=== PATIENT | male | born 1995 | race Two or more races ===

== ENCOUNTER → 2024-07-07 | Outpatient (CLI) | payer BC, SELFPAY ==
[2024-07-07 12:36] LABS: Absolute Neutrophil Count 4.1 X10^3/uL (2.0-7.7); Basophil# 0.08 X10^3/uL; Eosinophil# 0.13 X10^3/uL; Eosinophils% 1.6 % (0-5); Hematocrit 46.1 % (40-54); Hemoglobin 15.9 g/dL (13.0-16.5); Lymphocyte % 35.5 % (19-41); Mean Corp Hgb Conc 34.5 g/dL (32-36); Mean Corpuscular Hgb 30.8 pg (27.0-32.0); Mean Corpuscular Volume 89.3 fL (80-94); Mean Platelet Vol. 11.3 fl (6.2-12.0); Monocyte# 0.75 X10^3/uL; Monocyte% 9.5 % (0-10); NRBC Flagged by Analyzer 0 % (0-5); Neutrophil # 4.07 X10^3/uL (2.7-7.7); Neutrophil % 51.8 % (47-70); Platelet Count 190 K/mm3 (150-450); RBC Distribution Width CV 12.8 % (11.6-14.6); RBC Distribution Width SD 41.6 fl (35.1-43.9); Red Blood Count 5.16 M/mm3 (4.6-6.2); White Blood Count 7.9 K/mm3 (4.4-11.0)
[2024-07-07 12:47] LABS: D-Dimer Quantitative (DVT/PE) 0.27 FEU/ug/m (0.27-0.49)
[2024-07-07 13:00] LABS: ALB/GLOB Ratio 1.5 RATIO (0.9-2.4); AST(SGOT) 248 U/L (<=37); Alanine Aminotransfer ALT/SGPT 660 U/L (<=46); Albumin, Serum 4.7 g/dL (3.5-5.0); Alkaline Phosphatase 64 U/L (40-129); Anion Gap 13 (5-15); BUN 6 mg/dL (4-19); Calcium,Total 9.2 mg/dL (7.6-11.0); Carbon Dioxide 22.1 mmol/L (21.0-32.0); Chloride 103 mmol/L (98-108); Creatinine, Serum 0.83 mg/dL (0.70-1.20); EST Glomerular Filtration Rate 123 (>60); Globulin 3.2 g/dL (2.2-4.2); Glucose 91 mg/dL (70-99); Magnesium 2.2 mg/dL (1.5-2.2); Potassium 3.9 mmol/L (3.3-5.1); Protein, Total 7.9 g/dL (5.9-8.4); Sodium Level 138 mmol/L (133-145); Total Bilirubin 0.55 mg/dL (0.00-1.30); Troponin T High Sensitivity < 6 ng/L (<=22)
[2024-07-07 17:28] LABS: Ferritin 1165 ng/mL (37-417)
== END | disposition home or self-care (01) ==
LOC: LABSPEC 12:16
PROVIDERS: PCP Internal Medicine; Referring Provider Internal Medicine; Visit Provider Internal Medicine
DX: R00.2 Palpitations (principal)
CPT/HCPCS: 80053; 82728; 83735; 84439; 84443; 84484; 85025; 85379

== ENCOUNTER → 2024-07-21 | Outpatient (CLI) | payer BC, SELFPAY ==
--- NOTE | 2024-07-21 08:03 | US_ITS ---
PROCEDURE: ABD LIMITED W/ ELASTOGRAPHY, 07/21/2024 REASON FOR EXAM: OTHER SPECIFIED ABNORMAL FINDINGS OF BLOOD CHEMISTRY COMPARISON: None TECHNIQUE: Grayscale and color Doppler imaging of the right upper quadrant was performed. Elastography was performed for non-invasive assessment of liver tissue stiffness utilizing a [employer]ong S-shear wave imaging unit. FINDINGS: Liver: Markedly echogenic. 17.4 cm in length. Gallbladder: No visualized stones, sludge, wall thickening or pericholecystic fluid. Reportedly, sonographic Mansfield's was negative. Biliary tree: Unremarkable. CBD measures 4 mm. Pancreas: Largely obscured by shadowing bowel gas. Right kidney: Unremarkable. 11.2 cm in length. Other: No visualized free fluid. Hepatic elastography: Number of measurements: 15 measurements across 3 regions, 5 measurements per region. US probe: CA1-7A. EQI median: 11.7 kPa EQI median velocity: 1.97 m/s IQR/Med: 19.2-23.8% (kPa) and 10.3-11.9% (m/s). If the IQR/Med is IQR/median >30% (for kPa) or >15% in m/s, the variance in the measurements is a large and the accuracy of the measurement may be in question. US/ABD Limited w/ Elastography IMPRESSION: 1. Appearance of the hepatic parenchyma most frequently associated with chronic liver disease such as steatosis although fibrosis may have a similar appearance. Correlate with clinical and laboratory evaluati on. 2. Liver stiffness is 11.7 kPa. Per the below 2020 SRU criteria, this is sugges tive of compensated advanced chronic liver disease but requires further testing for confirmation. 3. Additional description as above. Assessment is per the Update to the SRU Liver Elastography Consensus Statement (2020) Note that the above assessment of liver fibrosis is vendor-neutral and intended for use in fibrosis related to viral etiologies and non-alcoholic fatty-liver disease (NAFLD); in causes other than viral hepat itis and NAFLD, the cutoff values are currently not well established. In some patients with NAFLD, the cutoff values for cACLD may be lower (7-9 kPa). Note also that in the setting of elevated LFTs, nonfasting or vascular congestion, the stage of lifer fibrosis may be overestimated. Previous U reference values: <1.37 m/s (5.7kPa): No to mild fibrosis 1.37 m/s - 2.2 m/s: Moderate to severe fibrosis >2.2 m/s (15kPa): Significant fibrosis / cirrhosis Reading Location: [id number]
== END | disposition home or self-care (01) ==
PROVIDERS: PCP Internal Medicine; Referring Provider Internal Medicine; Visit Provider Internal Medicine
DX: R79.89 Other specified abnormal findings of blood chemistry (principal)
CPT/HCPCS: 76705; 76981

== ENCOUNTER 2024-09-11 09:00 | Outpatient (RCR) | payer BC, SELFPAY ==
--- NOTE | 2024-08-04 16:06 | HP.PTEVAL_ITS ---
Patient's Visit Information Visit Information Visit Information: KEVIN RON is a 28 year old M referred to Physical Therapy by Dr. Ermelinda He MD with a diagnosis of L SCAPULAR/COSTOCHONDRITIS. Date of Evaluation: 08/04/24 Physical Therapist: Jeanna Burgos PT, Cert MDT Visit Plan Frequency: 2-3x /Week Duration: 4-6 Weeks Plan: 1. PEC STRETCHING 2. L ROTATOR CUFF AND SCAPULAR STABILIZER STRENGTHENING 3. POSTURAL STRENGTHENING 4. 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 HEP 6. 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 JOB INVOLVES HEAVY BENDING, LIFTING AND TWISITNG UP TO 30 TO 40 LBS REPETIVELEY. OTHER: GOES BY [facility] ([facility]-) Disability: NO Present symptoms: L CHEST AND SHLD BLADE AREA PAIN. L SHLD PAIN TOO. INTERMITTENT L UE NUMBNESS AND TINGLING. R UE HAS STARTED TO GET NUMB AND TINGLY TOO AND IT IS RIGHT NOW. ALSO STARTING TO GET PAIN IN R SHLD BLADE BUT NOT CHEST. DENIES TEO LE PAIN, NUMBESS AND TINGLING. SHORTNESS OF BREATHE Present since: MAR 2024 Getting Better, Getting Worse or Staying the Same: GETTING WORSE Pain Scale: Worst - 8/10 Least - 3/10 Currently: 5/10 Commenced as a result of: LIFTING AT WORK (STARTED LABOR JOB IN JAN 2024) Symptoms at onset: L CHEST PAIN Worse: TOUCHING IT, LIFTING ANYTHING HEAVY WITH L UE, ANY PHYSICAL ACTIVITY, USING L UE - 10 LBS IS VERY DIFFICULT WITH L UE (CAN LIFT 15 TO 20 LBS PRETTY EASILY WITH R UE), SDLY - ESPECIALLY L SDLY. Better: VOLTERAN GEL, STRETCHING, RESTING, AVOIDING LIFTING, LYING DOWN ON BACK, STILL WITH GOOD POSTURE. STANDING DESK. SITTING WITH SUPPORT IN LOW BACK. Disturbed sleep: YES Previous history/Previous treatment: UNREMARKABLE This episode: OTC PAIN KILLERS THEN June ALMOST FAINTED AT WORK AND DR. HE PRESCRIBED ANXIETY MEDS WITH BENEFIT. MASSAGE X1 WITH TEMPORARY BENEFIT. Dizziness: NO Tinnitus: NO Nausea: NO Shortness of Breath: INTERMITTENT Difficulty Swallowing: NO Gait: LEAN TO THE LEFT WHEN WALKING - FRIEND NOTICED ON VACATION LAST WEEK. Accidents: NO Unexplained weight loss: NO Imaging: RIB AND CHEST X-RAYS- NORMAL PMH/Recent major surgery: FEB 2023 EPISODE OF ANXIETY. Objective Objective: Sitting Posture/Standing Posture: MILD FH. REDUCED CERVICAL LORDOSIS. NO TORTICOLLIS. Active Correction of posture: WORSE - SITTING ERECT PROVOKES L SCAPULAR PAIN. INITIALLY NO PAIN IN SLOUCHING THEN WITH PROLONGED SLOUCH L CHEST PAIN IS PROVOKED. Other Observations: BRUISING TO THE LEFT OF STERNUM. PATIENT RELATES THIS TO PUSHING ON IT HIMSELF WHEN IT HURTS TO TRY TO GET RELIEF. INDEP GAIT AND TRANSFERS. Sensory deficit: TEO UE LIGHT TOUGH SENSATION GROSSLY INTACT AND SYMMETRICAL ROM deficit: TEO UE AROM FULL. PEC TIGHTNESS Motor deficit: R UE 5/5. L UE 5/5 EXCEPT SHLD 4/5 AND PATIENT C/O L SHLD/SHLD BLADE AND CHEST PAIN WITH TESTING. Cervical Mvmt Loss: Flex: NIL - P POST NECK PAIN - NW Pro: NIL Ext: MIN - P L CHEST PAIN - NW Ret: MOD RSB: MOD - P L NECK PAIN - NW LSB: MOD R Rot: NIL L Rot: MIN THORACIC MVMT LOSS: R ROTATION: MIN L ROTATION: MOD - P L FLANK PAIN - W FOR A FEW MINUTES LUMBAR MVMT LOSS: FLEX - MOD EXT - MIIN TEO SG - MIN LUMBAR ROM TESTING HAS NE ON SX'S. Postural strength: FAIR. Palpation: TENDERNESS T12 L1 REGION. PATIENT REPORTS THIS IS UNRELATED AND STARTED WITH THE NEW LABOR JOB. DENIES OTHER THORACIC, CERVICAL TEO SHLD TENDERNESS. L CHEST TENDERNESS IN BRUISED AREA. Balance/Special Test Scores Quick DASH Score: 47.7250 Rehabilitation Potential Physical Therapy Diagnosis: L UE WEAKNESS AND CHEST TENDERNESS. L THORACIC ROTATION PAIN AND MVMT LOSS. POSTURAL TIGHTNESS. Rehabilitation Potential: Good Anticipated Interventions Patient/Client Instruction: Educate patient on: Condition, Plan of Care and Risk Factors For the Purpose of:: To improve self management Therapeutic Exercise to Include: Strength training, Body mechanics, Postural training, Flexibilty training, Relaxation training and Scapular Strength/Stabilization For the Purpose of:: To decrease pain, To improve muscle performance and motor function, To increase tolerance to activity/condition/position, To improve ability of physical actions for home/community/work/leisure, To decrease soft tissue restriction, To increase flexibility/ROM and To improve self management Manual Therapy Techniques to Include: Soft tissue mobilization For the Purpose of:: To improve nutrient delivery to tissue and To decrease soft tissue restriction Cryotherapy (ice pack, ice massage): Yes Thermo therapy (hot pack): Yes For the Purpose of:: To decrease pain, To decrease swelling/inflammation and To improve nutrient delivery to tissue Text: Thank you for the opportunity to evaluate your patient. For Medicare and Medicare HMO plans, please review the plan of care and approve it. It will need to be FAXED BACK to us at [phone] for Medicare purposes. For Medicare only, by signing this I certify the plan of care. Please let me know if there are questions or concerns regarding this plan of care. Physician Signature: Date:
--- NOTE | 2024-08-27 15:45 | HP.PTREVAL ---
Re-Evaluation Intro: Dr. Ermelinda He MD, It has been my pleasure to treat KEVIN RON over the last 8 visits for L SCAPULAR/COSTOCHONDRITIS. Please see the progress note below for an update on the physical therapy plan of care! Subjective Subjective: PATIENT REPORTS 40% IMPROVEMENT IN HIS L SHLD PAIN AND ZERO % IMPROVEMENT IN HIS CHEST PAIN. Objective Objective/Function: PATIENT WAS SEEN TODAY FOR RE-ASSESSMENT OF PROGRESS TOWARD THE SET PT GOALS AND THE NEED FOR FURTHER PHYSICAL THERAPY VS READINESS FOR DISCHARGE. PAINFREE CERVICAL AND THORACIC ROM HAVE IMPROVED SIGNIFICANTLY ALONG WITH L UE STRENGTH SINCE STARTING PT. PATIENT IS A GOOD CANDIDATE TO CONTINUE PT BASED ON IMPOVEMENT MADE CONTINUED LIMITATIONS. AT THIS POINT PHYSICIAN REASSESSMENT IS ALSO RECOMMENDED. PATIENT AGREEABLE. UPON EXAM TODAY: Motor deficit: R SHLD FLEX 50.6 LBS, L 39.6 LBS (78%) R SHLD EXT 49.3 LBS, L 28.9 LBS (59%) R SHLD ABD 29.9 LBS, L 29.5 LBS (99%) R SHLD ER 27.1 LBS, L 22.2 LBS (82%) R SHLD IR 29.2 LBS, L 28.7 LBS (98%) Cervical Mvmt Loss: Flex: NIL Pro: NIL Ext: NIL Ret: MIN RSB: NIL LSB: NIL R Rot: NIL L Rot: MIN PATIENT DENIES NECK AND TEO UE PAIN WITH CERVICAL ROM TESTING ALL PLANES. THORACIC MVMT LOSS: R ROTATION: NIL L ROTATION: MIN - P C/O MILD L SHLD BLADE PAIN - NW LUMBAR MVMT LOSS: FLEX - MOD EXT - MIN TEO SG - NIL LUMBAR ROM TESTING HAS NE ON SX'S. Postural strength: FAIR. Palpation: TENDERNESS [id number] REGION TODAY. DENIES OTHER THORACIC, CERVICAL, LUMBAR AND TEO SHLD TENDERNESS. L CHEST TENDERNESS IN BRUISED AREA REMAINS AND PATIENT REPORTS HE STILL PUSHES ON THIS AREA. Plan Plan Plan: HOLD PT PENDING PHYSICIAN RE-ASSESSMENT. Balance/Gait/Functional tests Balance/Special Test Scores Quick DASH Score: 40.9075 Anticipated Interventions Anticipated Interventions Patient/Client Instruction: Educate patient on: Condition, Plan of Care and Risk Factors For the Purpose of:: To improve self management Therapeutic Exercise to Include: Strength training, Body mechanics, Postural training, Flexibilty training, Relaxation training and Scapular Strength/Stabilization For the Purpose of:: To decrease pain, To improve muscle performance and motor function, To increase tolerance to activity/condition/position, To improve ability of physical actions for home/community/work/leisure, To decrease soft tissue restriction, To increase flexibility/ROM and To improve self management Manual Therapy Techniques to Include: Soft tissue mobilization For the Purpose of:: To improve nutrient delivery to tissue and To decrease soft tissue restriction Cryotherapy (ice pack, ice massage): Yes Thermo therapy (hot pack): Yes For the Purpose of:: To decrease pain, To decrease swelling/inflammation and To improve nutrient delivery to tissue Re-Evaluation Ending Re-evaluation ending: Please do not hesitate to contact me at [phone] by phone or if you have questions or concerns regarding this new plan of care! Sincerely, Jeanna Burgos, PT, Cert MDT
--- NOTE | 2024-09-11 12:10 | HP.PTDCSUM_ITS ---
Discharge Summary D/C summary: It has been my pleasure to treat KEVIN RON referred by Dr. Ermelinda He MD, with the diagnosis of L SCAPULAR/COSTOCHONDRITIS for a total of 11 visit(s). Discharge Date: 09/11/24 Please see the following information for a summary of their discharge status. 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 STATES HE DID GOOD AFTER LAST VISIT BUT BEING SICK THE LAST COUPLE DAYS WITH POSSIBLE FOOD POISONING HAS IRRITATED HIS SYMPTOMS. WENT BACK TO [facility] SATURDAY AND RECEIVED ABOUT THE SAME TREATMENT LAST TIME BUT FELT LESS AGGRESSIVE TO PATIENT. PATIENT REPORTS FEELING THE CHIROPACTIC VISIT WAS BENEFICIAL AND NO WORSE AFTER. PATIENT REPORTS THE PAIN HAS GRADUALLY MOVED TO HIS L RIB CAGE AREA AND HE IS POINTING UNDER HIS ARM TO HIS LATERAL RIB CAGE AREA. HE ALSO FEELS A LUMP NOW IN HIS L CHEST MUSCLE AND STATES HIS L SHOULDER IS CRACKING AND HIS L SHOULDER GETS PAINFUL IF HE CRACKS HIS SHLD A LOT. DID NOT HAVE ENERGY TO DO HOME EX'S SAT AND SATURDAY AND CALLED OFF WORK SOME TOO. PATIENT STATES HE PLANS TO CONTINUE TO SEE THE CHIROPACTOR ONCE A WK ON TUESDAYS AND FOLLOW UP WITH DR. HE IN SEPTEMBER. Pain Shoulder blade: Pain Intensity (Out of 10): 5 Chest: Pain Intensity (Out of 10): 0 L LATERAL RIB CAGE: Pain Intensity (Out of 10): 7 Overall Improvement % Improvement: 80 Objective Objective/Function: PATIENT WAS SEEN TODAY FOR RE-ASSESSMENT OF PROGRESS TOWARD THE SET PT GOALS AND THE NEED FOR FURTHER PHYSICAL THERAPY VS READINESS FOR DISCHARGE. PAINFREE CERVICAL AND THORACIC ROM HAVE IMPROVED SIGNIFICANTLY ALONG WITH L UE STRENGTH SINCE STARTING PT. PATIENT IS INDEP WITH A HEP AND HOME INSTRUCTIONS AND NOW SEEING A CHIROPRACTOR. HE IS APPROPRIATE FOR AND AGREEABLE TO DISCHARGE TO [facility] EX FROM PT. UPON EXAM TODAY: Motor deficit: R SHLD FLEX 50.6 LBS, L 47.7 LBS (94.3%) R SHLD EXT 49.3 LBS, L 48.0 LBS (97.4%) R SHLD ABD 43.2 LBS, L 40.8 LBS (94.4%) R SHLD ER 27.1 LBS, L 29.0 LBS (107%) R SHLD IR 29.2 LBS, L 28.7 LBS (98.3%) Cervical Mvmt Loss: Flex: NIL Pro: NIL Ext: NIL Ret: MIN RSB: NIL LSB: NIL R Rot: NIL L Rot: NIL PATIENT DENIES NECK AND TEO UE PAIN WITH CERVICAL ROM TESTING ALL PLANES. THORACIC MVMT LOSS: R ROTATION: NIL L ROTATION: NIL - C/O MILD LEFT NECK STRAIN - NW LUMBAR MVMT LOSS: FLEX - MOD EXT - MIN TEO SG - NIL LUMBAR ROM TESTING HAS NE ON SX'S. Postural strength: FAIR. Palpation: L CHEST BRUISED AREA REMAINS AND PATIENT REPORTS HE STILL PUSHES ON THIS AREA SOME BUT IT IS ACTUALLY NOT TENDER TODAY. PATIENT HAS PALPABLE MUSCLE SPASM L PEC REGION TODAY UPON ARRIVAL AND L RIB CAGE REGION TENDERNESS. Plan Plan: D/C TO INDEP HOME EX, F/U WITH CHIROPRACTOR AND DR. HE. D/C Information d/c sentence: If there are questions or concerns regarding this patient's physical therapy, please feel free to call me at [phone]. Thank you for the referral of this patient. Sincerely, Jeanna Burgos, PT, Cert MDT Balance/Gait/Functional tests Balance/Special Test Scores Quick DASH Score: 18.1800 Improvement % Improvement: 80
== END 2024-09-11 19:00 | disposition home or self-care (01) ==
LOC: PT 09:00
PROVIDERS: PCP Internal Medicine; Referring Provider Internal Medicine; Visit Provider Internal Medicine
DX: M25.512 Pain in left shoulder (principal); M94.0 Chondrocostal junction syndrome [Tietze]
CPT/HCPCS: 97035; 97110; 97162; 97530

== ENCOUNTER → 2024-10-28 | Outpatient (CLI) | payer BC, SELFPAY ==
--- OUTSIDE RECORDS SUMMARY | 2024-10-28 12:33 | XMS RPT_ITS | CCD ---
Author Organization [facility] CliniSymd Care Team Providers Care Cruller Maker Machine Name Role Phone Raymond AUGUSTE, Dr. Nolan Attending Provider [phone] Ying AUGUSTE, Dr. Wadsworth Primary Care Provider Ying AUGUSTE, Dr. Wadsworth Attending Provider Ying AUGUSTE, Dr. Wadsworth Referring Provider José Miguel AUGUSTE, Dr. Brand Attending Provider Lacey AUGUSTE, Dr. Nava Attending Provider José Miguel AUGUSTE, Dr. Brand Referring Provider Lacey AUGUSTE, Dr. Nava Referring Provider Bonezzi, Ermelinda Primary Care Unavailable Bonezzi, Ermelinda Attending Unavailable Bonezzi, Ermelinda Referring Unavailable Isckarus, Mansxi Referring Unavailable Bonezzi, Ermelinda Primary Care Unavailable Isckarus, Brandy Attending Unavailable José Miguel, Sunday Referring Unavailable Bonezzi, Ermelinda Primary Care Unavailable Isckarus, Brandy Attending Unavailable Ovidio Andrade Attending Unavailable Bonezzi, Ermelinda Referring Unavailable Bonezzi, Ermelinda Primary Care Unavailable Bonezzi, Ermelinda Attending Unavailable Bonezzi, Ermelinda Referring Unavailable Bonezzi, Ermelinda Primary Care Unavailable Bonezzi, Ermelinda Attending Unavailable Bonezzi, Ermelinda Primary Care Unavailable Isckarus, Brandy Attending Unavailable Bonezzi, Ermelinda Referring Unavailable José Miguel, Sunday Attending Unavailable Bonezzi, Ermelinda Primary Care Unavailable Bonezzi, Ermelinda Referring Unavailable Bonezzi, Ermelinda Referring Unavailable Bonezzi, Ermelinda Primary Care Unavailable Bonezzi, Ermelinda Attending Unavailable José Miguel, Sunday Attending Unavailable José Miguel, Sunday Referring Unavailable Bonezzi, Ermelinda Primary Care Unavailable Medications Current Medications Medication Drug Class(es) Dates Sig (Normalized) Sig (Original) busPIRone hydrochloride 10 mg oral tablet (7 sources) Start: 09-02-2024 take 1 tablet by mouth twice daily Buspirone 10 mg tablet Active 10 mg PO TWICE A DAY September 02, 2024 12:00am Start: 08-13-2024 End: 09-02-2024 take 1 tablet by mouth twice daily Buspirone 7.5 mg tablet Discontinued 7.5 mg PO TWICE A DAY August 13, 2024 12:00am September 02, 2024 10:14am Completed/Discontinued Medications Medication Drug Class(es) Dates Sig (Normalized) Sig (Original) finasteride 1 mg oral tablet (4 sources) 5-alpha Reductase Inhibitor Start: 08-13-2024 End: 08-18-2024 take 1 tablet by mouth once daily Finasteride 1 mg tablet Discontinued 1 mg PO daily August 13, 2024 12:00am August 18, 2024 2:17pm minoxidil 10 mg oral tablet (4 sources) Arteriolar Vasodilator Start: 08-13-2024 End: 08-18-2024 take 1 tablet by mouth once daily Minoxidil 10 mg tablet Discontinued 10 mg PO daily August 13, 2024 12:00am August 18, 2024 2:17pm Problems Active Problems Problem Classification Problem Date Documented Date Episodic/Chronic Nonspecific chest pain (1 source) Chest pain, unspecified; Translations: [Chest pain, unspecified] Onset: 10-20-2024 Episodic Other liver diseases (7 sources) Hepatic fibrosis; Translations: [Hepatic fibrosis] 08-18-2024 Chronic Other nutritional; endocrine; and metabolic disorders (3 sources) Iron overload; 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] 08-18-2024 Chronic Other nutritional; endocrine; and metabolic disorders (1 source) Other disorders of iron metabolism; 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] Onset: 10-16-2024 Chronic Other screening for suspected conditions (not mental disorders or infectious disease) (8 sources) Protein level - finding; Translations: [Other specified abnormal findings of blood chemistry] Onset: 07-27-2024 09-02-2024 Episodic Comment on above: With negative hemoch romatosis gene testing Unclassified (3 sources) E83.19 - Other disorders of iron metabolism,K74.00 - Hepatic fibrosis, unspecified Unclassified (1 source) Iron overload Unclassified (1 source) Hepatic fibrosis, unspecified; Translations: [Hepatic fibrosis, unspecified] Onset: 10-16-2024 Past or Other Problems Problem Classification Problem Date Documented Da te Episodic/Chronic Cardiac dysrhythmias (1 source) Palpitations; Translations: [Palpitations] Onset: 07-09-2024 Episodic Results Test Name Value Interpretation Reference Range Facility Oncology Visit Reporton Oncology Visit Report [facility] [address] [address] OFFICE VISIT Date of Service: 09/22/24 1431 MR#: [id number] Acct: [id number] Name: KEVIN RON Rep #: [id number] : 1995 From: Brandy Rahman MD Age/Sex: 28/M Location: [facility] Status: Signed HPI Subjective Date of Service 09/22/24 Chief Complaint Elevated ferritin History of Present Illness 28-year-old male was evaluated for elevated liver enzymes and was found to have elevated ferritin over 1000 prompting hemochromatosis gene analysis which came back negative. No family history of hemochromatosis or unexplained liver disease. Patient's father was diagnosed with fatty liver. The referring MD also requested the patient, if indicated, be checked for hemoglobinopathy and/or porphyria. The patient has no history of blistering photosensitive rash nor unexplained bouts of acute abdominal pain. His CBC is normal. [facility] Medical History Anxiety NAFLD (nonalcoholic fatty liver disease) Costochondritis, acute Palpitations Chest pain Elevated liver enzymes Elevated ferritin Family History Other No pertinent family history Social History Smoking Status: Former smoker Tobacco: How many years used: 8 alcohol intake: current alcohol intake frequency: a few times a month Alcohol type: beer ROS ROS Narrative C September 02, 2024 Intake Vital Signs 09/02/24 10:23 09/22/24 14:32 09/22/24 14:35 Height 6 ft 6 ft 6 ft Weight: 97.069 kg BMI 29.0 BP 130/85 H Blood Pressure Location Lt brachial Position Sitting Respiration 16 Pulse 99 Pulse Source Monitor Temp 98.4 F Temperature Source Temporal Artery Pulse Oximetry (%) 97 Oxygen Delivery Method room air Intake Is patient in pain?: No Allergies No Known Allergies Allergy (Verified 09/22/24 14:35) Medications ???Medication ???Instructions ???Recorded ???Confirmed ???Type buspirone 10 mg tablet 10 mg PO BID 09/02/24 09/22/24 His tory Have you fallen in the past year?: No Central Venous Access Central Venous Access: No Laboratory Tests 07/07/24 09/16/24 10:45 09:18 Fasting Iron Saturation 41.0 Ferritin 1165 H 946 H Exam Physical Exam Narrative Seizure 04/04/2024 Const alert, oriented x3 and no apparent distress Coding Level of Care Code Off vis,est,level 3 Exam Problem Focused Diagnoses Elevated ferritin R79.89 Assessment and Plan Assessment and Plan (1) Elevated ferritin: Status: Acute Comment: With negative hemochromatosis gene testing Plan 28-year-old male who was evaluated for elevated liver enzymes, was found to have an elevated serum ferritin prompting hemochromatosis gene analysis which came back negative. Repeat fasting iron st udies showed ferritin to be persistently elevated but to a lesser extent and normal iron saturation. This makes hereditary hemochromatosis very unlikely unless iron overload is confirmed within the hepatocytes on a liver biopsy. The referring MD questioned: 1. Possibility of a hemoglobinopathy: The patient has a normal CBC and therefore no further workup is indicated for a hemoglobinopathy. 2. Possibility of porphyria: In absence of history of photosensitive blistering rash or unexplained bouts of acute abdominal pain to suggest acute intermittent porphyria (also known acute hepatic porphyria) I do not think further testing is warranted. If this is still suspected by the referring doctor's screening with random urine porphyrins can be ordered to his discretion. Plan: No further workup from hematology unless the patient is approved to have excessive iron deposition in the hepatocytes on a liver biopsy. Will defer to hepatology and primary care for further workup. Impression and plan as above outlined discussed. Brandy Rahman MD Casing Soaker, [facility] Divisions of Medical Oncology Hematology Department of Internal Medicine [place] [id number] This note was generated using a voice recognition system software. Although it was reviewed by the author prior to finalization, it may still contain incorrect words, spelling, and punctuation that were not noted when reviewing prior to saving. If a clinically significant typo or inaccurately typed phrase is noted, please notify the author. Clinical Quality Measures Falls Risk Screening/Assistive Devices Have you fallen in the past year?: No 09/22/24 1513 Date Brandy Rahman MD Cosigner Signature: Date (more content not included)... Normal [facility] Iron measurement (mass/mass) Ordered By: Brandy Rahman on 09-16-2024 Iron (Unsp spec) [Mass/Mass] 150 ug/dL 65-175 [facility] Iron+Iron Binding Capacityon 09-16-2024 Iron [Mass/Vol] 150 ug/dL Normal 65-175 [facility] Comment on above: Performed By: #### L 503.6030, L503.6550 #### [facility] [address]. [place] [id number] IRON SATURATION 41.0 Normal 9-55 [facility] Comment on above: Performed By: #### L 503.6030, L503.6550 #### [facility] [address] [facility] [address] TIBC 365 ug/dL Normal 250-450 [facility] Comment on above: Performed By: #### L 503.6030, L503.6550 #### [facility] [address] [facility] [place], [address] UIBC 215 ug/dL Low 228-428 [facility] Comment on above: Performed By: #### L 503.6030, L503.6550 #### [facility] [address] [place], [place], [address] No Panel InformationOrdered By: Brandy Rodriguezriaz on 09-16-2024 Unsaturated Iron Binding Capacity 215 ug/dL Low 228-428 [facility] Serum or plasma ferritin nevaeh surement (mass/volume)Ordered By: Brandy Rahman on 09-16-2024 Ferritin [Mass/Vol] 946 ng/mL High 37-417 [facility] Comment on above: Performed By: #### L 503.6030, L503.6550 #### [facility] [address] [place], [place], [id number] Serum or plasma iron saturat ion measurement (mass fraction)Ordered By: Brandy Rahman on 09-16-2024 Iron saturation [Mass fraction] 41.0 % 9-55 [facility] PT D/C Summary (1)on 025 PT D/C Summary (1) [facility] Physical Therapy [place] [id number] [facility] [place] [address] / REHABILITATION SERVICES DISCHARGE SUMMARY MR#: [id number] Acct: [id number] Name: KEVIN RON Rep #: [id number] : 1995 28 From: Jeanna Burgos PT, Cert. MDT Referring Dr.: Dr. Ermelinda Farias MD Status: REG R Insurance: [employer] S[employer] PAY INSURANCE Discharge Summary D/C summary: It has been my pleasure to treat KEVIN RON referred by Dr. Ermelinda Farias MD, with the diagnosis of L SCAPULAR/COSTOCHONDRIT IS for a total of 11 visit(s). Discharge Date: 09/11/24 Please see the following information for a summary of their discharge status. 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 STATES HE DID GOOD AFTER LAST VISIT BUT BEING SICK THE LAST COUPLE DAYS WITH POSSIBLE FOOD POISONING HAS IRRITATED HIS SYMPTOMS. WENT BACK TO [facility] SATURDAY AND RECEIVED ABOUT THE SAME TREATMENT LAST TIME BUT FELT LESS AGGRESSIVE TO PATIENT. PATIENT REPORTS FEELING THE CHIROPACTIC VISIT WAS BENEFICIAL AND NO WORSE AFTER. PATIENT REPORTS THE PAIN HAS GRADUALLY MOVED TO HIS L RIB CAGE AREA AND HE IS POINTING UNDER HIS ARM TO HIS LATERAL RIB CAGE AREA. HE ALSO FEELS A LUMP NOW IN HIS L CHEST MUSCLE AND STATES HIS L SHOULDER IS CRACKING AND HIS L SHOULDER GETS PAINFUL IF HE CRACKS HIS SHLD A LOT. DID NOT HAVE ENERGY TO DO HOME EX'S SAT AND SATURDAY AND CALLED OFF WORK SOME TOO. PATIENT STATES HE PLANS TO CONTINUE TO SEE THE CHIROPACTOR ONCE A WK ON TUESDAYS AND FOLLOW UP WITH DR. FARIAS IN SEPTEMBER. Pain Shoulder blade: Pain Intensity (Out of 10): 5 Chest: Pain Intensity (Out of 10): 0 L LATERAL RIB CAGE: Pain Intensity (Out of 10): 7 Overall Improvement % Improvement: 80 Objective Objective/Function: PATIENT WAS SEEN TODAY FOR RE-ASSESSMENT OF PROGRESS TOWARD THE SET PT GOALS AND THE NEED FOR FURTHER PHYSICAL THERAPY VS READINESS FOR DISCHARGE. PAINFREE CERVICAL AND THORACIC ROM HAVE IMPROVED SIGNIFICANTLY ALONG WITH L UE STRENGTH SINCE STARTING PT. PATIENT IS INDEP WITH A HEP AND HOME INSTRUCTIONS AND NOW SEEING A CHIROPRACTOR. HE IS APPROPRIATE FOR AND AGREEABLE TO DISCHARGE TO [facility] EX FROM PT. UPON EXAM TODAY: Motor deficit: R SHLD FLEX 50.6 LBS, L 47.7 LBS (94.3%) R SHLD EXT 49.3 LBS, L 48.0 LBS (97.4%) R SHLD ABD 43.2 LBS, L 40.8 LBS (94.4%) R SHLD ER 27.1 LBS, L 29.0 LBS (107%) R SHLD IR 29.2 LBS, L 28.7 LBS (98.3%) Cervical Mvmt Loss: Flex: NIL Pro: NIL Ext: NIL Ret: MIN RSB: NIL LSB: NIL R Rot: NIL L Rot: NIL PATIENT DENIES NECK AND TEO UE PAIN WITH CERVICAL ROM TESTING ALL PLANES. THORACIC MVMT LOSS: R ROTATION: NIL L ROTATION: NIL - C/O MILD LEFT NECK STRAIN - NW LUMBAR MVMT LOSS: FLEX - MOD EXT - MIN TEO SG - NIL LUMBAR ROM TESTING HAS NE ON SX'S. Postural strength: FAIR. Palpation: L CHEST BRUISED AREA REMAINS AND PATIENT REPORTS HE STILL PUSHES ON THIS AREA SOME BUT IT IS ACTUALLY NOT TENDER TODAY. PATIENT HAS PALPABLE MUSCLE SPASM L PEC REGION TODAY UPON ARRIVAL AND L RIB CAGE REGION TENDERNESS. Plan Plan: D/C TO INDEP HOME EX, F/U WITH CHIROPRACTOR AND DR. FARIAS. D/C Information d/c sentence: If there are questions or concerns regarding this patient's physical therapy, please feel free to call me at [phone]. Thank you for the referral of this patient. Sincerely, Jeanna Burgos, PT, Cert MDT Balance/Gait/Functiona l tests Balance/Special Test Scores Quick DASH Score: 18.1800 Improvement % Improvement: 80 09/11/24 1211 CC: Dr. Ermelinda Farias MD RENATA Signed Normal [facility] Oncology Visit Reporton 08-23 Oncology Visit Report [facility] [address] [address] OFFICE VISIT Date of Service: 09/02/24 1013 MR#: [id number] Acct: [id number] Name: KEVIN RON Rep #: [id number] : 1995 From: Brandy Rahman MD Age/Sex: 28/M Location: [facility] Status: Signed HPI Subjective Date of Service 09/02/24 Chief Complaint Elevated ferritin History of Present Illness 28-year-old male was evaluated for elevated liver enzymes and was found to have elevated ferritin over 1000 prompting hemochromatosis gene analysis which came back negative. No family history of hemochromatosis or unexplained liver disease. Patient's father was diagnosed with fatty liver. The referring MD also requested the patient, if indicated, be checked for hemoglobinopathy and/or porphyria. The patient has no history of blistering photosensitive rash nor unexplained bouts of acute abdominal pain. His CBC is normal. [facility] Medical History (Updated 09/02/24 @ 10:[address] Brandy Rahman MD) Anxiety NAFLD (nonalcoholic fatty liver disease) Costochondritis, acute Palpitations Chest pain Elevated liver enzymes Elevated ferritin Family History (Updated 09/02/24 @ 10:17 by Tricia Jaramillo) Other No pertinent family history Social History (Updated 09/02/24 @ 10:16 by Tricia Jaramillo) Smoking Status: Former smoker Tobacco: How many years used: 8 alcohol intake: current alcohol intake frequency: a few times a month Alcohol type: beer ROS Constitutional Constitutional: Reports systems reviewed and no addt'l complaints, except as documented Eyes Eyes: Reports systems reviewed and no addt'l complaints, except as documented ENT HEENT: Reports systems reviewed and no addt'l complaints, except as documented Cardiovascular Cardiovascular: Reports systems reviewed and no addt'l complaints, except as documented Respiratory/Chest Respiratory/Chest: Reports systems reviewed and no addt'l complaints, except as documented Gastrointestinal Gastrointestinal: Reports systems reviewed and no addt'l complaints, except as documented Genitourinary Genitourinary: Reports systems reviewed and no addt'l complaints, except as documented Musculoskeletal Musculoskeletal: Reports systems reviewed and no addt'l complaints, except as documented and other Details: Patient was diagnosed with costochondritis and was taking NSAIDs Integumentary Integumentary: Reports systems reviewed and no addt'l complaints, except as documented; Denies photosensitivity or rash Neurologic Neurologic: Reports systems reviewed and no addt'l complaints, except as documented Psychiatric Psychiatric: Reports systems reviewed and no addt'l complaints, except as documented Endocrine Endocrinology: Reports systems reviewed and no addt'l complaints, except as documented Hematologic/Lymphatic Hematologic/Lymphatic: Reports systems reviewed and no addt'l complaints, except as documented; Denies anemia Allergic/Immunologic Allergic/Immunologic: Reports systems reviewed and no addt'l complaints, except as documented Intake Vital Signs 08/18/24 13:30 09/02/24 10:17 09/02/24 10:23 Height 6 ft 6 ft 3 in 6 ft Weight: 95.708 kg 96.672 kg BMI 28.6 26.6 BP 142/98 H 136/93 H Blood Pressure Location Rt brachial Lt brachial Position Sitting Sitting Respiration 18 Pulse 78 82 Pulse Source Monitor Temp 98.1 F Temperature Source Temporal Artery Pulse Oximetry (%) 98 97 Oxygen Delivery Method room air room air Intake Is patient in pain?: Yes (chest pain ) Pain scale (1-10): 5 Allergies No Known Allergies Allergy (Verified 09/02/24 10:13) Medications ???Medication ???Instructions ???Recorded ???Confirmed ???Type buspirone 10 mg tablet 10 mg PO BID 09/02/24 09/02/24 His tory Have you fallen in the past year?: No Central Venous Access Central Venous Access: No Laboratory Tests 07/07/24 10:45 Hgb 15.9 Hct 46.1 MCV 89.3 Ferritin 1165 H Exam Physical Exam Narrative Healthy appearing Const alert, oriented x3 and no apparent distress Skin no rashes or lesions noted Coding Level of Care Code Off vis,new,level 3 Exam Problem Focused Diagnoses Elevated ferritin R79.89 Assessment and Plan Assessment and Plan (1) Elevated ferritin: Status: Acute Comment: With negative hemochromatosis gene testing Plan 28-year-old male who was evaluated for elevated liver enzymes, was found to have a random nonfasting serum ferritin of over 1000 prompting hemochromatosis gene analysis which came back negative. This makes hereditary hemochromatosis very unlikely unless iron overload is confirmed within the hepatocytes on a liver biopsy. The referring MD questioned: 1. Possibility of a hemoglobinopathy: The patient h (more content not included)... Normal [facility] Re-Evaluation - PT (1)on Re-Evaluation - PT (1) [facility] [address] [place] [address]. [address] [place] [address] / REEVALUATION / MEDICARE RECERTIFICATION PHYSICAL THERAPY MR#: [id number] Acct: [id number] Name: KEVIN RON Rep #: [id number] : 1995 28 From: Jeanna Burgos PT, Cert. MDT Referring Dr.: Dr. Ermelinda Farias MD Status:REG R Insurance: [facility] SELF PAY INSURANCE Re-Evaluation Intro: Dr. Ermelinda Farias MD, It has been my pleasure to treat KEVIN RON over the last 8 visits for L SCAPULAR/COSTOCHONDRIT IS. Please see the progress note below for an update on the physical therapy plan of care! Subjective Subjective: PATIENT REPORTS 40% IMPROVEMENT IN HIS L SHLD PAIN AND ZERO % IMPROVEMENT IN HIS CHEST PAIN. Objective Objective/Function: PATIENT WAS SEEN TODAY FOR RE-ASSESSMENT OF PROGRESS TOWARD THE SET PT GOALS AND THE NEED FOR FURTHER PHYSICAL THERAPY VS READINESS FOR DISCHARGE. PAINFREE CERVICAL AND THORACIC ROM HAVE IMPROVED SIGNIFICANTLY ALONG WITH L UE STRENGTH SINCE STARTING PT. PATIENT IS A GOOD CANDIDATE TO CONTINUE PT BASED ON IMPOVEMENT MADE CONTINUED LIMITATIONS. AT THIS POINT PHYSICIAN REASSESSMENT IS ALSO RECOMMENDED. PATIENT AGREEABLE. UPON EXAM TODAY: Motor deficit: R SHLD FLEX 50.6 LBS, L 39.6 LBS (78%) R SHLD EXT 49.3 LBS, L 28.9 LBS (59%) R SHLD ABD 29.9 LBS, L 29.5 LBS (99%) R SHLD ER 27.1 LBS, L 22.2 LBS (82%) R SHLD IR 29.2 LBS, L 28.7 LBS (98%) Cervical Mvmt Loss: Flex: NIL Pro: NIL Ext: NIL Ret: MIN RSB: NIL LSB: NIL R Rot: NIL L Rot: MIN PATIENT DENIES NECK AND TEO UE PAIN WITH CERVICAL ROM TESTING ALL PLANES. THORACIC MVMT LOSS: R ROTATION: NIL L ROTATION: MIN - P C/O MILD L SHLD BLADE PAIN - NW LUMBAR MVMT LOSS: FLEX - MOD EXT - MIN TEO SG - NIL LUMBAR ROM TESTING HAS NE ON SX'S. Postural strength: FAIR. Palpation: TENDERNESS [id number] REGION TODAY. DENIES OTHER THORACIC, CERVICAL, LUMBAR AND TEO SHLD TENDERNESS. L CHEST TENDERNESS IN BRUISED AREA REMAINS AND PATIENT REPORTS HE STILL PUSHES ON THIS AREA. Plan Plan Plan: HOLD PT PENDING PHYSICIAN RE-ASSESSMENT. Balance/Gait/Functiona l tests Balance/Special Test Scores Quick DASH Score: 40.9075 Anticipated Interventions Anticipated Interventions Patient/Client Instruction: Educate patient on: Condition, Plan of Care and Risk Factors For the Purpose of:: To improve self management Therapeutic Exercise to Include: Strength training, Body mechanics, Postural training, Flexibilty training, Relaxation training and Scapular Strength/Stabilization For the Purpose of:: To decrease pain, To improve muscle performance and motor function, To increase tolerance to activity/condition/pos ition, To improve ability of physical actions for home/community/work/le isure, To decrease soft tissue restriction, To increase flexibility/ROM and To improve self management Manual Therapy Techniques to Include: Soft tissue mobilization For the Purpose of:: To improve nutrient delivery to tissue and To decrease soft tissue restriction Cryotherapy (ice pack, ice massage): Yes Thermo therapy (hot pack): Yes For the Purpose of:: To decrease pain, To decrease swelling/inflammation and To improve nutrient delivery to tissue Re-Evaluation Ending Re-evaluation ending: Please do not hesitate to contact me at [phone] by phone or if you have questions or concerns regarding this new plan of care! Sincerely, Jeanna Burgos, PT, Cert MDT 08/27/24 5734 CC: Dr. Ermelinda Farias MD RENATA Signed For Medicare only, by signing this I certify the plan of care. Physicians Signature Date Normal [facility] Gastroenterology Visit Repor ton 08-18-2024 Gastroenterology Visit Report [facility] Gastroenterology [address] [place] [address] OFFICE VISIT Date of Service: 08/18/24 MR#: [id number] Acct: [id number] Name: KEVIN RON Rep #: [id number] : 1995 Provider: Dr. Sunday bhakta MD Age/Sex: 28/M Location: [facility] [place] Status: Signed Intake Vital Signs 08/18/24 13:30 Height 6 ft Weight: 211 lb BMI 28.6 BP 142/98 H Blood Pressure Location Rt brachial Position Sitting Pulse 78 Pulse Oximetry (%) 98 Oxygen Delivery Method room air Intake Visit Reasons: LIVER DISEASE FATTY LIVER Allergies No Known Allergies Allergy (Verified 08/18/24 13:30) Medications ???Medication ???Instructions ???Recorded ???Confirmed ???Type buspirone 7.5 mg tablet 7.5 mg PO BID 08/13/24 08/18/24 Hi story [facility] Medical History Anxiety NAFLD (nonalcoholic fatty liver disease) Costochondritis, acute Palpitations Chest pain Elevated liver enzymes Elevated ferritin HPI HPI Details: KEVIN RON, is a 28 M who presents to the office today for initial consult. PCP referred for fatty liver. US abd/ elastography 4.29.- Liver measure 17.4cm, Stiffness 11.7 kPa 4.15.25- Fib-4 1.37 Patient seen as a new patient for elevated liver enzymes, high ferritin and transferrin saturation. Denies family history of chronic liver/GB/pancreatic disease. Denies history of autoimmune disease in first-degree family. No abdominal pain. Social history: Patient started drinking beer at the age of 16 with 1 to 2 days on weekends and later on heavily on weekends. Gradually progressed to maximum amount of 4 to 5 cans every other day. He quit alcohol April 2023. Smoking: Started smoking cigarettes 1 pack lasting for 1 week at the age of 15-16 and he quit in April 2023. Sometimes smokes weed. Denies other substance use. ROS Const Constitutional: Positive for weight change; No fatigue, fever(s) or weakness ENT ENT: No difficulty swallowing Resp Respiratory: No shortness of breath or wheezing Cardio Cardiology: No chest pain at rest or dyspnea on exertion Gastro GI: No abdominal pain, belching, bloating, change in bowel habits, change in stool character, coffee ground emesis, constipation, cramping, diarrhea, heartburn, difficulty swallowing, feeling full early, excessive flatus, incontinent of stools, Vomiting blood/hematemesis, Blood in stool, loose stools, Black,tarry stools, nausea/dyspepsia, pain with swallowing, vomiting or other Genitourinary Male: No difficulty urinating or burning urination Musc Musculoskeletal: Positive for joint pain, back pain and stiffness Skin Skin: No yellowing of the eye or itchy eyes Neuro Neurology: No abnormal movements, behavioral changes, weakness or lack of coordination Psych Psychiatric: No anxiety, No behavioral changes and No depression Endo Endocrine: Positive for weight change; No fatigue Aller/Imm Allergy/Immunologic: No itchy eyes or wheezing Lucien/Lymp Hematologic/Lymphatic: No easy bleeding or easy bruising Exam Const General: cooperative, no acute distress and well developed Nutritional Appearance: overweight Orientation: alert, awake and oriented x3 Other: Body weight 211 pounds, BMI 28.6 kg/m???. He said he lost about 20 pounds in last 6 months intentionally. [facility] Head: normocephalic and atraumatic Nose: external nose normal Face and sinus: normal facial exam Mouth: moist mucous membranes Eyes Pupils: PERRL EOM: EOM intact bilaterally Neck Neck: normal visual inspection, no meningeal signs and trachea midline Carotids: no bruits Chest Chest palpation inspection: normal inspection of the chest Resp Effort Inspection: normal respiratory effort and symmetric chest movement Auscultation: Bilateral: Clear to Auscultation Cardio Palpation: normal PMI Rate: regular rate Rhythm: regular rhythm Heart Sounds: S1 normal and S2 normal GI Auscultation: normal bowel sounds Percussion: normal to percussion Palpation: soft, no hepatosplenomegaly and no guarding Other: Liver not enlarged. Spleen not palpable General: bimanual renal exam normal bilaterally, bladder normal to inspection and bladder normal to palpation Musc Musculoskeletal: No joint tenderness, joint redness, joint warmth or decreased range of motion Thoracic/Lumbar Spine: thor and lumb spine abnorm to inspection Skin General: rashes and/or lesions noted, turgor normal and no erythema Wounds: wound noted Neuro General: patient alert, patient awake, patient oriented x3 and no focal motor deficits Speech: speech normal Motor: muscle tone normal throughout Extrem General: normal exam except as noted Psych Appearance: grossly normal Mood: congruent mood Affect: luis (more content not included)... Normal [facility] Inital Evaluation (1) - PTon 08-04-2024 Inital Evaluation (1) - PT [facility] Physical Therapy [facility] [address] [place] [address] [address] [place] [id number] / REHABILITATION SERVICES INITIAL EVALUATION MR#: [id number] Acct: [id number] Name: KEVIN RON Rep #: [id number] : 1995 28 From: Jeanna Burgos PT, Cert. MDT Referring Dr.: Dr. Ermelinda Farias MD Status: REG RCR Insurance: [employer] S[employer]Y INSURANCE Patient's Visit Information Visit Information Visit Information: KEVIN RON is a 28 year old M referred to Physical Therapy by Dr. Ermelinda Farias MD with a diagnosis of L SCAPULAR/COSTOCHONDRIT IS. Date of Evaluation: 08/04/24 Physical Therapist: Jeanna Burgos PT, Cert MDT Visit Plan Frequency: 2-3x /Week Duration: 4-6 Weeks Plan: 1. PEC STRETCHING 2. L ROTATOR CUFF AND SCAPULAR STABILIZER STRENGTHENING 3. POSTURAL STRENGTHENING 4. HEALTH BACK/PERSONNEL SECURITY SPECIALIST TRAINING FOR LIFTING AT WORK AND ERGONOMICS FOR HOME WORKSTATION SET UP 5. HEP 6. 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 JOB INVOLVES HEAVY BENDING, LIFTING AND TWISITNG UP TO 30 TO 40 LBS REPETIVELEY. OTHER: GOES BY [facility] ([facility]-) Disability: NO Present symptoms: L CHEST AND SHLD BLADE AREA PAIN. L SHLD PAIN TOO. INTERMITTENT L UE NUMBNESS AND TINGLING. R UE HAS STARTED TO GET NUMB AND TINGLY TOO AND IT IS RIGHT NOW. ALSO STARTING TO GET PAIN IN R SHLD BLADE BUT NOT CHEST. DENIES TEO LE PAIN, NUMBESS AND TINGLING. SHORTNESS OF BREATHE Present since: MAR 2024 Getting Better, Getting Worse or Staying the Same: GETTING WORSE Pain Scale: Worst - 8/10 Least - 3/10 Currently: 5/10 Commenced as a result of: LIFTING AT WORK (STARTED LABOR JOB IN JAN 2024) Symptoms at onset: L CHEST PAIN Worse: TOUCHING IT, LIFTING ANYTHING HEAVY WITH L UE, ANY PHYSICAL ACTIVITY, USING L UE - 10 LBS IS VERY DIFFICULT WITH L UE (CAN LIFT 15 TO 20 LBS PRETTY EASILY WITH R UE), SDLY - ESPECIALLY L SDLY. Better: VOLTERAN GEL, STRETCHING, RESTING, AVOIDING LIFTING, LYING DOWN ON BACK, STILL WITH GOOD POSTURE. STANDING DESK. SITTING WITH SUPPORT IN LOW BACK. Disturbed sleep: YES Previous history/Previous treatment: UNREMARKABLE This episode: OTC PAIN KILLERS THEN June ALMOST FAINTED AT WORK AND DR. FARIAS PRESCRIBED ANXIETY MEDS WITH BENEFIT. MASSAGE X1 WITH TEMPORARY BENEFIT. Dizziness: NO Tinnitus: NO Nausea: NO Shortness of Breath: INTERMITTENT Difficulty Swallowing: NO Gait: LEAN TO THE LEFT WHEN WALKING - FRIEND NOTICED ON VACATION LAST WEEK. Accidents: NO Unexplained weight loss: NO Imaging: RIB AND CHEST X-RAYS- NORMAL PMH/Recent major surgery: FEB 2023 EPISODE OF ANXIETY. Objective Objective: Sitting Posture/Standing Posture: MILD FH. REDUCED CERVICAL LORDOSIS. NO TORTICOLLIS. Active Correction of posture: WORSE - SITTING ERECT PROVOKES L SCAPULAR PAIN. INITIALLY NO PAIN IN SLOUCHING THEN WITH PROLONGED SLOUCH L CHEST PAIN IS PROVOKED. Other Observations: BRUISING TO THE LEFT OF STERNUM. PATIENT RELATES THIS TO PUSHING ON IT HIMSELF WHEN IT HURTS TO TRY TO GET RELIEF. INDEP GAIT AND TRANSFERS. Sensory deficit: TEO UE LIGHT TOUGH SENSATION GROSSLY INTACT AND SYMMETRICAL ROM deficit: TEO UE AROM FULL. PEC TIGHTNESS Motor deficit: R UE 5/5. L UE 5/5 EXCEPT SHLD 4/5 AND PATIENT C/O L SHLD/SHLD BLADE AND CHEST PAIN WITH TESTING. Cervical Mvmt Loss: Flex: NIL - P POST NECK PAIN - NW Pro: NIL Ext: MIN - P L CHEST PAIN - NW Ret: MOD RSB: MOD - P L NECK PAIN - NW LSB: MOD R Rot: NIL L Rot: MIN THORACIC MVMT LOSS: R ROTATION: MIN L ROTATION: MOD - P L FLANK PAIN - W FOR A FEW MINUTES LUMBAR MVMT LOSS: FLEX - MOD EXT - MIIN TEO SG - MIN LUMBAR ROM TESTING HAS NE ON SX'S. Postural strength: FAIR. Palpation: TENDERNESS T12 L1 REGION. PATIENT REPORTS THIS IS UNRELATED AND STARTED WITH THE NEW LABOR JOB. DENIES OTHER THORACIC, CERVICAL TEO SHLD TENDERNESS. L CHEST TENDERNESS IN BRUISED AREA. Balance/Special Test Scores Quick DASH Score: 47.7250 Rehabilitation Potential Physical Therapy Diagnosis: L UE WEAKNESS AND CHEST TENDERNESS. L THORACIC ROTATION PAIN AND MVMT LOSS. POSTURAL TIGHTNESS. Rehabilitation Potential: Good Anticipated Interventions Patient/Client Instruction: Educate patient on: Condition, Plan of Care and Risk Factors For the Purpose of:: To improve self management Therapeutic Exercise to Include: Strength training, Body mechanics, Postural training, Flexibilty training, Relaxation training and Scapular Strength/Stabilization For the Purpose of:: To decrease pain, To improve muscle performance and motor function, To increase tolerance to activity/condition/pos ition, To improve ability of physical actions for home/community/work/le isure, To decrease soft tissue restriction, To increase (more content not included)... Normal [facility] ABD Limited w/ Elastographyo n 07-21-2024 ABD Limited w/ Elastography [facility] Imaging Services [address] [place] [address] ABD Limited w/ Elastography MR#: [id number] Acct: [id number] Name: KEVIN RON Rep #: [id number] : 1995 M 28 From: Nicko Amor MD PCP: Dr. Ermelinda Farias MD Status: REG CLI Study: ABD Limited w/ Elastography Date of Exam: 06/24 12/17 Exam# [id number] Ordering Dr: Ermelinda Farias MD PROCEDURE: ABD LIMITED W/ ELASTOGRAPHY, 07/21/2024 REASON FOR EXAM: OTHER SPECIFIED ABNORMAL FINDINGS OF BLOOD CHEMISTRY COMPARISON: None TECHNIQUE: Grayscale and color Doppler imaging of the right upper quadrant was performed. Elastography was performed for non-invasive assessment of liver tissue stiffness utilizing a [facility] S-shear wave imaging unit. FINDINGS: Liver: Markedly echogenic. 17.4 cm in length. Gallbladder: No visualized stones, sludge, wall thickening or pericholecystic fluid. Reportedly, sonographic Mansfield's was negative. Biliary tree: Unremarkable. CBD measures 4 mm. Pancreas: Largely obscured by shadowing bowel gas. Right kidney: Unremarkable. 11.2 cm in length. Other: No visualized free fluid. Hepatic elastography: Number of measurements: 15 measurements across 3 regions, 5 measurements per region. US probe: CA1-7A. EQI median: 11.7 kPa EQI median velocity: 1.97 m/s IQR/Med: 19.2-23.8% (kPa) and 10.3-11.9% (m/s). If the IQR/Med is IQR/median >30% (for kPa) or >15% in m/s, the variance in the measurements is a large and the accuracy of the measurement may be in question. US/ABD Limited w/ Elastography IMPRESSION: 1. Appearance of the hepatic parenchyma most frequently associated with chronic liver disease such as steatosis although fibrosis may have a similar appearance. Correlate with clinical and laboratory evaluation. 2. Liver stiffness is 11.7 kPa. Per the below 2020 SRU criteria, this is suggestive of compensated advanced chronic liver disease but requires further testing for confirmation. 3. Additional description as above. Assessment is per the Update to the SRU Liver Elastography Consensus Statement (2020) Note that the above assessment of liver fibrosis is vendor-neutral and intended for use in fibrosis related to viral etiologies and non-alcoholic fatty-liver disease (NAFLD); in causes other than viral hepatitis and NAFLD, the cutoff values are currently not well established. In some patients with NAFLD, the cutoff values for cACLD may be lower (7-9 kPa). Note also that in the setting of elevated LFTs, nonfasting or vascular congestion, the stage of lifer fibrosis may be overestimated. Previous SRU reference values: <1.37 m/s (5.7kPa): No to mild fibrosis 1.37 m/s - 2.2 m/s: Moderate to severe fibrosis >2.2 m/s (15kPa): Significant fibrosis / cirrhosis Reading Location: [id number] CC: Dr. Ermelinda Farias MD Painting Manager: Signed Normal [facility] Absolute lymphocyte countOrd ered By: Ermelinda Farias on 07-07-2024 Lymphocytes Auto (Unsp spec) [#/Vol] 2.80 10*3/uL 0.83-4.51 [facility] Absolute neutrophil countOrd ered By: Ermelinda Farias on 07-07-2024 Neutrophils (Bld) [#/Vol] 4.1 10*3/uL 2.0-7.7 [facility] Anion gap in Serum or Plasma Ordered By: Ermelinda Farias on 07-07-2024 Anion gap [Moles/Vol] 13 mmol/L 5- [facility] Automated lymphocyte count a s percentage of total leukocytesOrdered By: Ermelinda Farias on 07-07-2024 Lymphocytes/100 WBC Auto (Unsp spec) 35.5 % 19-41 [facility] BUN/creatinine ratioOrdered By: Ermelinda Farias on 07-07-2024 Urea nitrogen/Creatinine [Mass ratio] 7.0 mg/mg Low 10-20 [facility] Basophil percentageOrdered B y: Ermelinda Farias on 07-07-2024 Basophils/100 WBC (Bld) 1.0 % 0-1 [facility] Bilirubin, totalOrdered By: Ermelinda Farias on 07-07-2024 Bilirubin [Mass/Vol] 0.55 mg/dL Normal 0.00-1.30 [facility] Comment on above: Performed By: #### L 501.4021, L500.4050, L3000.0375, L503.6550, L100.0100, L300.8000, L501.9520, L506.0400, L501.5200 ####[facility] [address] [place], [address] CBC W/Diff, Automatedon 06-23-2024 Absolute Lymph 2.80 X10 3/uL Normal 0.83-4.51 [facility] Comment on above: Performed By: #### L 501.4021, L500.4050, L3000.0375, L503.6550, L100.0100, L300.8000, L501.9520, L506.0400, L501.5200 #### [facility] [address] [place], [address] Absolute Neut 4.1 X10 3/uL Normal 2.0-7.7 [facility] Comment on above: Performed By: #### L 501.4021, L500.4050, L3000.0375, L503.6550, L100.0100, L300.8000, L501.9520, L506.0400, L501.5200 #### [facility] [address] [place], [address] Basophils/100 WBC (Bld) 1.0 % Normal 0-1 [facility] Comment on above: Performed By: #### L 501.4021, L500.4050, L3000.0375, L503.6550, L100.0100, L300.8000, L501.9520, L506.0400, L501.5200 #### [facility] [address] [place], [address] Eosinophils/100 WBC (Bld) 1.6 % Normal 0-5 [facility] Comment on above: Performed By: #### L 501.4021, L500.4050, L3000.0375, L503.6550, L100.0100, L300.8000, L501.9520, L506.0400, L501.5200 #### [facility] [address] [facility] [place], [address] Erythrocyte distribution width (RBC) [Ratio] 12.8 % Normal 11.6-14.6 [facility] Comment on above: Performed By: #### L 501.4021, L500.4050, L3000.0375, L503.6550, L100.0100, L300.8000, L501.9520, L506.0400, L501.5200 #### [facility] [address] [place], [address] Hematocrit (Bld) [Volume fraction] 46.1 % Normal 40-54 [facility] Comment on above: Performed By: #### L 501.4021, L500.4050, L3000.0375, L503.6550, L100.0100, L300.8000, L501.9520, L506.0400, L501.5200 #### [facility] [address] [facility] [place], [address] Hemoglobin (Bld) [Mass/Vol] 15.9 g/dL Normal 13.0-16.5 [facility] Comment on above: Performed By: #### L 501.4021, L500.4050, L3000.0375, L503.6550, L100.0100, L300.8000, L501.9520, L506.0400, L501.5200 #### [facility] [address] [facility] [place], [address] IG% 0.600 Normal 0.0-0.9 [facility] Comment on above: Result Comment: IG% - Immature Granulocytes (promyelocytes, myelocytes and metamyelocytes) > 1% indicates that a LEFT SHIFT is Present. Performed By: #### L 501.4021, L500.4050, L3000.0375, L503.6550, L100.0100, L300.8000, L501.9520, L506.0400, L501.5200 #### [facility] [address] [place], [address] Lymphocytes/100 WBC (Bld) 35.5 % Normal 19-41 [facility] Comment on above: Performed By: #### L 501.4021, L500.4050, L3000.0375, L503.6550, L100.0100, L300.8000, L501.9520, L506.0400, L501.5200 #### [facility] [address] [place], [address] MCH (RBC) [Entitic mass] 30.8 pg Normal 27.0-32.0 [facility] Comment on above: Performed By: #### L 501.4021, L500.4050, L3000.0375, L503.6550, L100.0100, L300.8000, L501.9520, L506.0400, L501.5200 #### [facility] [address] [place], [address] MCHC (RBC) [Mass/Vol] 34.5 g/dL Normal 32-36 [facility] Comment on above: Performed By: #### L 501.4021, L500.4050, L3000.0375, L503.6550, L100.0100, L300.8000, L501.9520, L506.0400, L501.5200 #### [facility] [address] [place], [address] MCV (RBC) [Entitic vol] 89.3 fL Normal 80-94 [facility] Comment on above: Performed By: #### L 501.4021, L500.4050, L3000.0375, L503.6550, L100.0100, L300.8000, L501.9520, L506.0400, L501.5200 #### [facility] [address] [place], [address] Monocytes/100 WBC (Bld) 9.5 % Normal 0-10 [facility] Comment on above: Performed By: #### L 501.4021, L500.4050, L3000.0375, L503.6550, L100.0100, L300.8000, L501.9520, L506.0400, L501.5200 #### [facility] [address] [place], [address] Neutrophils/100 WBC (Bld) 51.8 % Normal 47-70 [facility] Comment on above: Performed By: #### L 501.4021, L500.4050, L3000.0375, L503.6550, L100.0100, L300.8000, L501.9520, L506.0400, L501.5200 #### [facility] [address] [place], [address] Nucleated RBC (Bld) [#/Vol] 0 10*3/uL Normal 0-5 [facility] Comment on above: Performed By: #### L 501.4021, L500.4050, L3000.0375, L503.6550, L100.0100, L300.8000, L501.9520, L506.0400, L501.5200 #### [facility] [address] [place], [address] Platelet mean volume (Bld) [Entitic vol] 11.3 fL Normal 6.2-12.0 [facility] Comment on above: Performed By: #### L 501.4021, L500.4050, L3000.0375, L503.6550, L100.0100, L300.8000, L501.9520, L506.0400, L501.5200 #### [facility] [address] [place], [address] Platelets (Bld) [#/Vol] 190 10*3/uL Normal 150-450 [facility] Comment on above: Performed By: #### L 501.4021, L500.4050, L3000.0375, L503.6550, L100.0100, L300.8000, L501.9520, L506.0400, L501.5200 #### [facility] [address] [place], [address] RBC (Bld) [#/Vol] 5.16 10*6/uL Normal 4.6-6.2 [facility] Comment on above: Performed By: #### L 501.4021, L500.4050, L3000.0375, L503.6550, L100.0100, L300.8000, L501.9520, L506.0400, L501.5200 #### [facility] [address] [place], [address] RDW SD 41.6 fl Normal 35.1-43.9 [facility] Comment on above: Performed By: #### L 501.4021, L500.4050, L3000.0375, L503.6550, L100.0100, L300.8000, L501.9520, L506.0400, L501.5200 #### [facility] [address] [place], [address] WBC (Bld) [#/Vol] 7.9 10*3/uL Normal 4.4-11.0 [facility] Comment on above: Performed By: #### L 501.4021, L500.4050, L3000.0375, L503.6550, L100.0100, L300.8000, L501.9520, L506.0400, L501.5200 #### [facility] [address] [place], [address] Carbon dioxide, total [Moles /volume] in Central venous bloodOrdered By: Ermelinda Farias on 07-07-2024 CO2 [Moles/Vol] 22.1 mmol/L Normal 21.0-32.0 [facility] Comment on above: Performed By: #### L 501.4021, L500.4050, L3000.0375, L503.6550, L100.0100, L300.8000, L501.9520, L506.0400, L501.5200 ####[facility] [address] [facility] [place], [place], [id number] Chest PA and Lateralon 07-07 Chest PA and Lateral [facility] Imaging Services [address] [place], [place] [address] Chest PA and Lateral MR#: [id number] Acct: [id number] Name: KEVIN RON Rep #: [id number] : 1995 M 28 From: Adrián doty MD PCP: Status: DEP AMB Study: Chest PA and Lateral Date of Exam: 07/07/24 Exam# [id number] Ordering Dr: Ermelinda Farias MD PROCEDURE: CHEST PA AND LATERAL 07/07/2024 REASON FOR EXAM: CHEST PAIN UPPER LEFT SIDE,EXERTIONAL TECHNIQUE: Frontal and lateral views of the chest. COMPARISON: None FINDINGS: Hardware: None Heart: The heart size is normal. Mediastinum: The mediastinal contour is unremarkable. Lungs: The lungs are clear. Bones: The bones are unremarkable. RAD/Chest PA and Lateral IMPRESSION: NEGATIVE CHEST Reading Location: [place] [address] CC: Dr. Ermelinda Farias MD Painting Manager: Signed Normal [facility] Chloride assayOrdered By: Vineet Farias on 07-07-2024 Chloride [Moles/Vol] 103 mmol/L Normal 98-108 [facility] Comment on above: Performed By: #### L 501.4021, L500.4050, L3000.0375, L503.6550, L100.0100, L300.8000, L501.9520, L506.0400, L501.5200 ####[facility] [address] [place], [address] Comprehensive Metabolic Prof ilon 07-07-2024 ALK PHOS 64 U/L Normal 40-129 [facility] Comment on above: Performed By: #### L 501.4021, L500.4050, L3000.0375, L503.6550, L100.0100, L300.8000, L501.9520, L506.0400, L501.5200 ####[facility] [address] [place], [address] BUN/CRE 7.0 RATIO Low 10-20 [facility] Comment on above: Performed By: #### L 501.4021, L500.4050, L3000.0375, L503.6550, L100.0100, L300.8000, L501.9520, L506.0400, L501.5200 ####[facility] [address] [place], [address] GAP 13 Normal 5-15 [facility] Comment on above: Performed By: #### L 501.4021, L500.4050, L3000.0375, L503.6550, L100.0100, L300.8000, L501.9520, L506.0400, L501.5200 ####[facility] [address] [place], [address] T PROT 7.9 g/dL Normal 5.9-8.4 [facility] Comment on above: Performed By: #### L 501.4021, L500.4050, L3000.0375, L503.6550, L100.0100, L300.8000, L501.9520, L506.0400, L501.5200 ####[facility] [address] [place], [place], [address] Comprehensive Metabolic Prof ilOrdered By: Ermelinda Farias on 07-07-2024 AST [Catalytic activity/Vol] 248 U/L High <=37 [facility] Comment on above: Performed By: #### L 501.4021, L500.4050, L3000.0375, L503.6550, L100.0100, L300.8000, L501.9520, L506.0400, L501.5200 ####[facility] [address] [place], [place], [address] D-Dimer Quantitative (DVT/PE )on 07-07-2024 D-DIMER QUANT 0.27 FEU/ug/m Normal 0.27-0.49 [facility] Comment on above: Result Comment: NORM AL D-Dimer level (<0.50) indicates no DVT or PE. Performed By: #### L 501.4021, L500.4050, L3000.0375, L503.6550, L100.0100, L300.8000, L501.9520, L506.0400, L501.5200 #### [facility] [address] [place], [address] D-dimer measurement for deep venous thrombosisOrdered By: Ermelinda Farias on 07-07-2024 D-Dimer Quantitative (PE/DVT) 0.27 FEU/ug/m 0.27-0.49 [facility] Comment on above: NORMAL D-Dimer level (<0.50) indicates no DVT or PE. Eosinophil percentageOrdered By: Ermelinda Farias on 07-07-2024 Eosinophils/100 WBC (Bld) 1.6 % 0-5 [facility] Erythrocyte distribution wid th (RBC) [Ratio]Ordered By: Ermelinda Farias on 07-07-2024 Erythrocyte distribution width (RBC) [Entitic vol] 41.6 fL 35.1-43.9 [facility] Erythrocyte distribution wid th ratioOrdered By: Ermelinda Farias on 07-07-2024 Erythrocyte distribution width (RBC) [Ratio] 12.8 % 11.6-14.6 [facility] Erythrocyte distribution wid th standard deviationOrdered By: Ermelinda Farias on 07-07-2024 Erythrocyte distribution width (RBC) [Ratio] 41.6 fl 35.1-43.9 [facility] Ferritinon 07-07-2024 Ferritin [Mass/Vol] 1165 ng/mL High 37-417 [facility] Comment on above: Performed By: #### L 501.4021, L500.4050, L3000.0375, L503.6550, L100.0100, L300.8000, L501.9520, L506.0400, L501.5200 ####[facility] [address] [place], [address] GFR/1.73 sq M.predicted ibeth g non-blacks MDRD (S/P/Bld) [Vol rate/Area]Ordered By: Ermelinda Farias on 07-07-2024 Estimated GFR (MDRD) Non-Af Amer 123 >60 [facility] Comment on above: mL/min/1.73m2 CKD-EP I Creatinine Equation (2020) Glomerular filtration rate ( GFR) estimation/1.73 sq m using serum, plasma, or whole bOrdered By: Ermelinda Farias on 07-07-2024 GFR/1.73 sq M.predicted among non-blacks MDRD (S/P/Bld) [Vol rate/Area] 123 mL/min/{1.73_m2} Normal >60 [facility] Comment on above: mL/min/1.73m2 CKD-EP I Creatinine Equation (2020) Result Comment: mL/m in/1.73m2 CKD-EPI Creatinine Equation (2020) Performed By: #### L 501.4021, L500.4050, L3000.0375, L503.6550, L100.0100, L300.8000, L501.9520, L506.0400, L501.5200 ####[facility] [address] [place], [address] Hematocrit Auto (Bld) [Volum e fraction]Ordered By: Ermelinda Farias on 07-07-2024 Hematocrit (Bld) [Volume fraction] 46.1 % 40-54 [facility] Hemoglobin measurementOrdere d By: Ermelindadeondre Farias on 07-07-2024 Hemoglobin (Bld) [Mass/Vol] 15.9 g/dL 13.0-16.5 [facility] Hepatitis Panel Acuteon - HEP B CORE,IgM Normal [facility] Comment on above: Result Comment: NO T UBE Performed By: #### L 501.4021, L500.4050, L3000.0375, L503.6550, L100.0100, L300.8000, L501.9520, L506.0400, L501.5200 ####[facility] [address] [place], [place], [id number] HEP B SURF AG Normal [facility] Comment on above: Result Comment: NO T UBE Performed By: #### L 501.4021, L500.4050, L3000.0375, L503.6550, L100.0100, L300.8000, L501.9520, L506.0400, L501.5200 ####[facility] [address] [place], [place], [phone] HEP C VIRUS AB Normal [facility] Comment on above: Result Comment: NO T UBE Performed By: #### L 501.4021, L500.4050, L3000.0375, L503.6550, L100.0100, L300.8000, L501.9520, L506.0400, L501.5200 ####[facility] [address] [place], [place], [id number] HEPATITIS A-IgM Normal [facility] Comment on above: Result Comment: NO T UBE Performed By: #### L 501.4021, L500.4050, L3000.0375, L503.6550, L100.0100, L300.8000, L501.9520, L506.0400, L501.5200 ####[facility] [address] [place], [place], [id number] Immature granulocytes/100 WB C Auto (Bld)Ordered By: Ermelinda Farias on 07-07-2024 Immature granulocytes/100 WBC (Bld) 0.600 % 0.0-0.9 [facility] Comment on above: IG% - Immature Granu locytes (promyelocytes, myelocytes and metamyelocytes) > 1% indicates that a LEFT SHIFT is Present. L501.4021on 07-07-2024 Trop T High Sen < 6 Normal <=22 [facility] Comment on above: Performed By: #### L 501.4021, L500.4050, L3000.0375, L503.6550, L100.0100, L300.8000, L501.9520, L506.0400, L501.5200 ####[facility] [address] [place], [place], [phone] Lymphocytes Auto (Unsp spec) [#/Vol]Ordered By: Ermelinda Farias on 07-07-2024 Lymphocytes (Bld) [#/Vol] 2.80 10*3/uL 0.83-4.51 [facility] Lymphocytes/100 WBC Auto (Un sp spec)Ordered By: Ermelinda Farias on 07-07-2024 Lymphocytes/100 WBC (Bld) 35.5 % 19-41 [facility] MCV (mean corpuscular volume ) determinationOrdered By: Ermelinda Farias on 07-07-2024 MCV (RBC) [Entitic vol] 89.3 fL 80-94 [facility] Magnesium measurement (mass/ volume)Ordered By: Ermelinda Farias on 07-07-2024 Magnesium (Unsp spec) [Mass/Vol] 2.2 mg/dL 1.5-2.2 [facility] Magnesium [Mass/Vol] 2.2 mg/dL Normal 1.5-2.2 [facility] Comment on above: Performed By: #### L 501.4021, L500.4050, L3000.0375, L503.6550, L100.0100, L300.8000, L501.9520, L506.0400, L501.5200 ####[facility] [address] [place], [address] Mean corpuscular hemoglobin (MCH) determinationOrdered By: Ermelinda Farias on 07-07-2024 MCH (RBC) [Entitic mass] 30.8 pg 27.0-32.0 [facility] Mean corpuscular hemoglobin concentration (MCHC) determinationOrdered By: Ermelinda Farias on 07-07-2024 MCHC (RBC) [Mass/Vol] 34.5 g/dL 32-36 [facility] Mean platelet volume determi nationOrdered By: Ermelinda Farias on 07-07-2024 Platelet mean volume (Bld) [Entitic vol] 11.3 fL 6.2-12.0 [facility] Monocyte percentageOrdered B y: Ermelinda Farias on 07-07-2024 Monocytes/100 WBC (Bld) 9.5 % 0-10 [facility] Neutrophil percentageOrdered By: Ermelinda Farias on 07-07-2024 Neutrophils/100 WBC (Bld) 51.8 % 47-70 [facility] Nucleated red blood cell per centageOrdered By: Ermelinda Farias on 07-07-2024 Nucleated RBC/100 WBC (Bld) [Ratio] 0 % 0-5 [facility] Platelet countOrdered By: Vineet Farias on 07-07-2024 Platelets (Bld) [#/Vol] 190 10*3/uL 150-450 [facility] Potassium measurement (mass/ volume)Ordered By: Ermelinda Farias on 07-07-2024 Potassium (Unsp spec) [Mass/Vol] 3.9 mmol/L 3.3-5.1 [facility] Potassium [Moles/Vol] 3.9 mmol/L Normal 3.3-5.1 [facility] Comment on above: Performed By: #### L 501.4021, L500.4050, L3000.0375, L503.6550, L100.0100, L300.8000, L501.9520, L506.0400, L501.5200 ####[facility] [address] [place], [address] RBC Auto (Bld) [#/Vol]Ordere d By: Ermelinda Farias on 07-07-2024 RBC (Bld) [#/Vol] 5.16 10*6/uL 4.6-6.2 [facility] Ribs Unil 2V No CXRon 2024 Ribs Unil 2V No CXR [facility] Imaging Services [address] [facility] [place] [address] Ribs Unil 2V No CXR MR#: [id number] Acct: [id number] Name: KEVIN RON Rep #: [id number] : 1995 M 28 From: Adrián doty MD PCP: Status: DEP AMB Study: Ribs Unil 2V No CXR Date of Exam: 07/07/24 Exam# [id number] Ordering Dr: Ermelinda Farias MD EXAM: Left ribs. CLINICAL HISTORY: Upper left rib pain. No history of trauma. COMPARISON: None TECHNIQUE: Four views of the left ribs were obtained. FINDINGS: The ribs are unremarkable. No evidence of fracture. The lungs are clear. RAD/Ribs Unil 2V No CXR IMPRESSION: Normal examination. Reading Location: [place] [address] CC: Dr. Ermelinda Farias MD Painting Manager: Signed Normal [facility] Serum creatinine measurement (mass/volume)Ordered By: Ermelinda Farias on 07-07-2024 Creatinine [Mass/Vol] 0.83 mg/dL Normal 0.70-1.20 [facility] Comment on above: Performed By: #### L 501.4021, L500.4050, L3000.0375, L503.6550, L100.0100, L300.8000, L501.9520, L506.0400, L501.5200 ####[facility] [address] [facility] [place], [address] Serum globulin measurementOr dered By: Ermelinda Farias on 07-07-2024 Globulin (S) [Mass/Vol] 3.2 g/dL Normal 2.2-4.2 [facility] Comment on above: Performed By: #### L 501.4021, L500.4050, L3000.0375, L503.6550, L100.0100, L300.8000, L501.9520, L506.0400, L501.5200 ####[facility] [address] [place], [address] Serum glucose measurement (m ass/volume)Ordered By: Ermelinda Farias on 07-07-2024 Glucose [Mass/Vol] 91 mg/dL Normal 70-99 [facility] Comment on above: Performed By: #### L 501.4021, L500.4050, L3000.0375, L503.6550, L100.0100, L300.8000, L501.9520, L506.0400, L501.5200 ####[facility] [address] [place], [address] Serum or plasma alanine lomax otransferase (ALT) measurementOrdered By: Ermelinda Farias on 07-07-2024 ALT [Catalytic activity/Vol] 660 U/L High <=46 [facility] Comment on above: Performed By: #### L 501.4021, L500.4050, L3000.0375, L503.6550, L100.0100, L300.8000, L501.9520, L506.0400, L501.5200 ####[facility] [address] [place], [place], [id number] Serum or plasma albumin manda urement (mass/volume)Ordered By: Ermelinda Farias on 07-07-2024 Albumin [Mass/Vol] 4.7 g/dL Normal 3.5-5.0 [facility] Comment on above: Performed By: #### L 501.4021, L500.4050, L3000.0375, L503.6550, L100.0100, L300.8000, L501.9520, L506.0400, L501.5200 ####[facility] [address] [place], [place], [id number] Serum or plasma albumin/glob ulin mass ratioOrdered By: Ermelindadeondre Farias on 07-07-2024 Albumin/Globulin [Mass ratio] 1.5 {ratio} Normal 0.9-2.4 [facility] Comment on above: Performed By: #### L 501.4021, L500.4050, L3000.0375, L503.6550, L100.0100, L300.8000, L501.9520, L506.0400, L501.5200 ####[facility] [address] [place], [address] Serum or plasma alkaline john sphatase measurementOrdered By: Ermelinda Farias on 07-07-2024 ALP [Catalytic activity/Vol] 64 U/L 40-129 [facility] Serum or plasma calcium manda urement (mass/volume)Ordered By: Ermelinda Farias on 07-07-2024 Calcium [Mass/Vol] 9.2 mg/dL Normal 7.6-11.0 [facility] Comment on above: Performed By: #### L 501.4021, L500.4050, L3000.0375, L503.6550, L100.0100, L300.8000, L501.9520, L506.0400, L501.5200 ####[facility] [address] [place], [address] Serum or plasma ferritin nevaeh surement (mass/volume)Ordered By: Ermelinda Farias on 07-07-2024 Ferritin [Mass/Vol] 1165 ng/mL High 37-417 [facility] Serum or plasma urea nitroge n measurement (mass/volume)Ordered By: Ermelinda Farias on 07-07-2024 Urea nitrogen [Mass/Vol] 6 mg/dL Normal 4-19 [facility] Comment on above: Performed By: #### L 501.4021, L500.4050, L3000.0375, L503.6550, L100.0100, L300.8000, L501.9520, L506.0400, L501.5200 ####[facility] [address] [place], [address] Sodium levelOrdered By: Ermelinda Farias on 07-07-2024 Sodium [Moles/Vol] 138 mmol/L Normal 133-145 [facility] Comment on above: Performed By: #### L 501.4021, L500.4050, L3000.0375, L503.6550, L100.0100, L300.8000, L501.9520, L506.0400, L501.5200 ####[facility] [address] [place], [address] T4 Free Directon 07-07-2024 T4 FREE DIRECT 1.30 ng/dL Normal 0.76-1.46 [facility] Comment on above: Order Comment: N Performed By: #### L 501.4021, L500.4050, L3000.0375, L503.6550, L100.0100, L300.8000, L501.9520, L506.0400, L501.5200 ####[facility] [address] [place], [place], [id number] T4 freeOrdered By: Ermelinda trevino on 07-07-2024 Free T4 [Mass/Vol] 1.30 ng/dL 0.76-1.46 [facility] TSH DL <= 0.005 mIU/L QnOrde red By: Ermelinda Farias on 07-07-2024 Thyroid Stimulating Hormone (TSH) 1.550 uIU/mL 0.300-4.200 [facility] TSH Qn 1.550 uIU/mL 0.300-4.200 [facility] Thyroid Stim Hormone (TSH)on 07-07-2024 TSH 1.550 uIU/mL Normal 0.300-4.200 [facility] Comment on above: Performed By: #### L 501.4021, L500.4050, L3000.0375, L503.6550, L100.0100, L300.8000, L501.9520, L506.0400, L501.5200 ####[facility] [address] [place], [place], [address] Total proteinOrdered By: Charlie Farias on 07-07-2024 Protein [Mass/Vol] 7.9 g/dL 5.9-8.4 [facility] Troponin T.cardiac High sens itivity method [Mass/Vol]Ordered By: Ermelinda Farias on 07-07-2024 Troponin T High Sensitivity < 6 ng/L <22 [facility] Troponin T.cardiac [Mass/vol ume] in Serum or Plasma by High sensitivity methodOrdered By: Ermelinda Farias on 07-07-2024 Troponin T.cardiac High sensitivity method [Mass/Vol] < 6 ng/L <22 [facility] White blood cell (WBC) count Ordered By: Ermelinda Farias on 07-07-2024 WBC (Bld) [#/Vol] 7.9 10*3/uL 4.4-11.0 [facility] Vital Signs Date Time Vital Sign Value Performing Clinician Ilia denton 09-22-2024 14:35-0400 Body height 182.[address] Ermelinda Farias MD Work Phone: [facility] 09-22-2024 14:35-0400 Body mass index (BMI) [Ratio] 29 kg/m2 Dr. Ermelinda Farias MD Work Phone: [facility] 09-22-2024 14:35-0400 Body temperature 98.4 [degF] Dr. Ermelinda Farias MD Work Phone: [facility] 09-22-2024 14:35-0400 Body weight 97.[address] Ermelinda Farias MD Work Phone: [facility] 09-22-2024 14:35-0400 Diastolic blood pressure 85 mm[Hg] Dr. Ermelinda Farias MD Work Phone: [facility] 09-22-2024 14:35-0400 Heart rate 99 /min Dr. Ermelinda Farias MD Work Phone: [facility] 09-22-2024 14:35-0400 Respiratory rate 16 /min Dr. Ermelinda Farias MD Work Phone: [facility] 09-22-2024 14:35-0400 SaO2% (BldA) [Mass fraction] 97 % Dr. Ermelinda Farias MD Work Phone: [facility] 09-22-2024 14:35-0400 Systolic blood pressure 130 mm[Hg] Dr. Ermelinda Farias MD Work Phone: [facility] 09-02-2024 10:23-0400 Body height 182.[address] Ermelinda Farias MD Work Phone: [facility] 09-02-2024 10:17-0400 Body mass index (BMI) [Ratio] 26.6 kg/m2 Dr. Ermelinda Farias MD Work Phone: [facility] 09-02-2024 10:17-0400 Body temperature 98.1 [degF] Dr. Ermelinda Farias MD Work Phone: [facility] 09-02-2024 10:17-0400 Body weight 96.[address] Ermelinda Farias MD Work Phone: [facility] 09-02-2024 10:17-0400 Diastolic blood pressure 93 mm[Hg] Dr. Ermelinda Farias MD Work Phone: [facility] 09-02-2024 10:17-0400 Heart rate 82 /min Dr. Ermelinda Farias MD Work Phone: [facility] 09-02-2024 10:17-0400 Respiratory rate 18 /min Dr. Ermelinda Farias MD Work Phone: [facility] 09-02-2024 10:17-0400 SaO2% (BldA) [Mass fraction] 97 % Dr. Ermelinda Farias MD Work Phone: [facility] 09-02-2024 10:17-0400 Systolic blood pressure 136 mm[Hg] Dr. Ermelinda Farias MD Work Phone: [facility] 08-18-2024 13:30-0400 Body height 182.[address] Ermelinda Farias MD Work Phone: [facility] 08-18-2024 13:30-0400 Body mass index (BMI) [Ratio] 28.6 kg/m2 Dr. Ermelinda Farias MD Work Phone: [facility] 08-18-2024 13:30-0400 Body weight 95.[address] Ermelinda Farias MD Work Phone: [facility] 08-18-2024 13:30-0400 Diastolic blood pressure 98 mm[Hg] Dr. Ermelinda Farias MD Work Phone: [facility] 08-18-2024 13:30-0400 Heart rate 78 /min Dr. Ermelinda Farias MD Work Phone: [facility] 08-18-2024 13:30-0400 SaO2% (BldA) [Mass fraction] 98 % Dr. Ermelinda Farias MD Work Phone: [facility] 08-18-2024 13:30-0400 Systolic blood pressure 142 mm[Hg] Dr. Ermelinda Farias MD Work Phone: [facility] Encounters Encounter Date Encounter Type Care Provider Facility Start: 10-28-2024 ambulatory Ermelinda Farias Facility:[facility] Start: 10-23-2024 ambulatory [facility] Facility: [facility] Start: 10-16-2024 Encounter for preprocedural laboratory examination [facility] Start: 09-22-2024 End: 09-22-[address] Brandy Rahman MD -[facility] Work Phone: Start: 09-22-2024 End: 09-22-[address] Ermelinda Farias MD Work Phone: -[facility] Start: 09-16-[address] Sandra Rahman MD -[facility] Start: 09-16-2024 ambulatory Brandy Larose ty:[facility] Start: 09-11-2024 End: 09-11-[address] Ermelinda Farias MD Work Phone: [facility] Work Phone: Start: 09-11-2024 End: 09-11-[address] Ermelinda Farias MD -Physical Therapy Work Phone: Start: 09-02-2024 End: 09-02-[address] Brandy Rahman MD -[facility] Work Phone: Start: 09-02-2024 End: 09-02-[address] Ermelinda Farias MD Work Phone: [facility] Work Phone: Start: 08-31-[address] Ermelinda Farias MD -Physical Therapy Work Phone: Start: 08-18-2024 End: 08-18-[address] Sunday Valdez MD -[facility] Work Phone: Start: 08-18-2024 End: 08-18-[address] Ermelinda Farias MD Work Phone: [facility] Work Phone: Start: 08-18-[address] Ermelinda Farias MD -Physical Therapy Work Phone: Start: 07-21-2024 End: 07-21-[address] Ermelinda Farias MD -Ultrasound [facility] Work Phone: Start: 07-21-2024 End: 07-21-2024 ambulatory Ermelinda Farias Facility:[facility] Start: 07-07-2024 End: 07-07-[address] Ermelinda Farias MD Work Phone: [facility] Work Phone: Start: 07-07-2024 End: 07-07-[address] Ermelinda Farias MD -Laboratory, Specimen Work Phone: Start: 07-07-2024 End: 07-07-[address] Ovidio Andrade MD -[facility] Start: 07-07-2024 End: 07-07-2024 ambulatory Ovidio Andrade Facility:[facility] Start: 07-07-2024 End: 07-07-2024 ambulatory Ermelinda Farias Facility:[facility] Procedures Date Procedure Procedure Detail Performing Clinician Start: 09-16-2024 Total iron binding capacity measurement Dr. Ermelinda Farias MD Work Phone: Start: 07-21-2024 Ultrasound elastogra phy of liver Dr. Ermelinda Farias MD Work Phone: Start: 07-07-2024 X-ray of unilateral ribs, two views without x-ray of chest Dr. Ermelinda Farias MD Work Phone: Start: 07-07-2024 X-ray of chest, PA a nd lateral views Dr. Ermelinda Farias MD Work Phone: Start: 07-07-2024 D-dimer assay, quantitative Dr. Ermelinda Farias MD Work Phone: Comment on above: NORMAL D-Dimer level (<0.50) indicates no DVT or PE. Plan of Treatment Date Care Activity Detail Author Start: 09-16-2024 [facility] Start: 08-18-2024 Patient referral [facility] Work Phone: Ewnue-2-[id number]. tumor marker [Units/volume] in Serum or Plasma [facility] C reactive protein [ Mass/volume] in Serum or Plasma [facility] CBC W Auto Different ial panel - Blood [facility] Cobalamin (Vitamin B 12) [Mass/volume] in Serum or Plasma [facility] metabo lic 1999 panel - Serum or Plasma [facility] Cytoplasmic ANCA Screen [facility] Direct antiglobulin test.unspecified reagent [Presence] [facility] Ferritin [Mass/volum e] in Serum or Plasma [facility] Folate [Moles/volume ] in Serum or Plasma [facility] Haptoglobin [Mass/vo lume] in Serum or Plasma [facility] Hemoglobin A1c/Hemog lobin.total in Blood [facility] Hepatitis B virus bingham rface Ab [Presence] in Serum [facility] Immunoglobulin measurement [facility] Iron and Iron bindin g capacity panel - Serum or Plasma [facility] Lactate dehydrogenas e measurement [facility] Lipid 1995 panel - S giorgio or Plasma [facility] Mitochondria Ab [Pre sence] in Serum [facility] Patient referral [facility] [employer] Work Phone: Procedure [facility] Prothrombin time [facility] Smooth muscle Ab [Pr esence] in Serum [facility] Thyroid stimulating hormone measurement [facility] Transferrin [Mass/vo lume] in Serum or Plasma [facility] US Heart [facility] Payers Date Payer Category Payer Self-pay 2024 Unknown [id number] Unknown [id number] 2.16.8 [id number] Unknown [id number] 2.16.8 [id number] Unknown [id number] 2.16.8 [id number] Unknown [id number] 2.16.8 [id number] Unknown [id number] 2.16.8 [id number] Unknown [id number] 2.16.8 [id number] Unknown [id number] 2.16.8 [id number] Unknown [id number] 2.16.8 [id number] Unknown [id number] 2.16.8 [id number] Unknown [id number] 2.16.8 [id number] Social History Date Type Detail Facility Tobacco smoking stat [facility] Unknown if ever smoked [facility] Work Phone: Start: 07-09-2024 Sex Male (finding) [facility] Start: 1995 Sex Assigned At Male [facility] Start: 09-02-2024 Tobacco smoking stat [facility] Ex-smoker (finding) [facility] Discharge summary 09-11-2024 Note Date & Type Note Facility 09-11-2024 Discharge summary Note Date/Time September 11, 2024 12:11pm [facility] Physical Therapy [address] [place] [address] / REHABILITATION SERVICES DISCHARGE SUMMARY MR#: [id number] Acct: [id number] Name: KEVIN RON Rep #: [id number] : 1995 28 From: Jeanna Burgos PT, Cert. MDT Referring Dr.: Dr. Ermelinda Farias MD Status: REG R Insurance: [facility] SELF PAY INSURANCE Discharge Summary D/C summary: It has been my pleasure to treat KEVIN RON referred by Dr. Ermelinda Farias MD,with the diagnosis of L SCAPULAR/COSTOCHONDRITIS for a total of 11 visit(s). Discharge Date: 09/11/24 Please see the following information for a summary of their discharge status. 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 STATES HE DID GOOD AFTER LAST VISIT BUT BEING SICK THE LAST COUPLE DAYS WITH POSSIBLE FOOD POISONING HAS IRRITATED HIS SYMPTOMS. WENT BACK TO [facility] SATURDAY AND RECEIVED ABOUT THE SAME TREATMENT LAST TIME BUT FELT LESS AGGRESSIVE TO PATIENT. PATIENT REPORTS FEELING THE CHIROPACTIC VISIT WAS BENEFICIAL AND NO WORSE AFTER. PATIENTREPORTS THE PAIN HAS GRADUALLY MOVED TO HIS L RIB CAGE AREA AND HE IS POINTING UNDER HIS ARM TO HIS LATERAL RIB CAGE AREA. HE ALSO FEELS A LUMP NOW IN HIS L CHEST MUSCLE AND STATES HIS L SHOULDER IS CRACKING AND HIS L SHOULDER GETS PAINFUL IF HE CRACKS HIS SHLD A LOT. DID NOT HAVE ENERGY TO DO HOME EX'S Sat AND CALLED OFF WORK SOME TOO. PATIENT STATES HE PLANS TO CONTINUE TO SEE THE CHIROPACTOR ONCE A WK ON TUESDAYS AND FOLLOW UP WITH DR. FARIAS IN SEPTEMBER. Pain Shoulder blade: Pain Intensity (Out of 10): 5 Chest: Pain Intensity (Out of 10): 0 L LATERAL RIB CAGE: Pain Intensity (Out of 10): 7 Overall Improvement % Improvement: 80 Objective Objective/Function: PATIENT WAS SEEN TODAY FOR RE-ASSESSMENT OF PROGRESS TOWARD THE SET PT GOALS AND THE NEED FOR FURTHER PHYSICAL THERAPY VS READINESS FOR DISCHARGE. PAINFREE CERVICAL AND THORACIC ROM HAVE IMPROVED SIGNIFICANTLY ALONGWITH L UE STRENGTH SINCE STARTING PT. PATIENT IS INDEP WITH A HEP AND HOME INSTRUCTIONS AND NOW SEEING A CHIROPRACTOR. HE IS APPROPRIATE FOR AND AGREEABLE TO DISCHARGE TO INDEP EX FROM PT. UPON EXAM TODAY: Motor deficit: R SHLD FLEX 50.6 LBS, L 47.7 LBS (94.3%) R SHLD EXT 49.3 LBS, L 48.0 LBS (97.4%) R SHLD ABD 43.2 LBS, L 40.8 LBS (94.4%) R SHLD ER 27.1 LBS, L 29.0 LBS (107%) R SHLD IR 29.2 LBS, L 28.7 LBS (98.3%) Cervical Mvmt Loss: Flex: NIL Pro: NIL Ext: NIL Ret: MIN RSB: NIL LSB: NIL R Rot: NIL L Rot: NIL PATIENT DENIES NECK AND ETO UE PAIN WITH CERVICAL ROM TESTING ALL PLANES. THORACIC MVMT LOSS: R ROTATION: NIL L ROTATION: NIL - C/O MILD LEFT NECK STRAIN - NW LUMBAR MVMT LOSS: FLEX - MOD EXT - MIN TEO SG - NIL LUMBAR ROM TESTING HAS NE ON SX'S. Postural strength: FAIR. Palpation: L CHEST BRUISED AREA REMAINS AND PATIENT REPORTS HE STILL PUSHES ON THIS AREA SOME BUT IT IS ACTUALLY NOT TENDER TODAY. PATIENT HAS PALPABLE MUSCLE SPASM L PEC REGION TODAY UPON ARRIVAL AND L RIB CAGEREGION TENDERNESS. Plan Plan: D/C TO INDEP HOME EX, F/U WITH CHIROPRACTOR AND DR. FARIAS. D/C Information d/c sentence: If there are questions or concerns regarding this patient's physical therapy, please feel free to call me at [phone]. Thank you for the referral of thispatient. Sincerely, Jeanna Burgos, PT, Cert MDT Balance/Gait/Functional tests Balance/Special Test Scores Quick DASH Score: 18.1800 Improvement % Improvement: 80 <Electronically signed by Jeanna Burgos PT Cert. MDT> 09/11/24 1211 CC: Dr. Ermelinda Farias MD ~ RENATA Signed [facility] Work Phone: Discharge summary 09-11-2024 Note Date & Type Note Facility 09-11-2024 Discharge summary [facility] Evaluation note 08-18-2024 Note Date & Type Note Facility 08-18-2024 Evaluation note Diagnosis Onset Date Resolution Fibrosis of liver chronic July 1:22pm Iron overload deleted August 18 025 1:22pm [facility] [employer] [facility] Work Phone: Evaluation note 08-18-2024 Note Date & Type Note Facility 08-18-2024 Evaluation note Diagnosis Onset Date Resolution Fibrosis of liver chronic July 1:22pm Iron overload deleted August 18, 2 025 1:22pm Elevated ferritin acute September 022024 10:03am [facility] Work Phone: Evaluation note 08-18-2024 Note Date & Type Note Facility 08-18-2024 Evaluation note Diagnosis Onset Date Resolution Fibrosis of liver chronic July 1:22pm Iron overload deleted August 18, 2 025 1:22pm Elevated ferritin acute September 022024 10:03am Elevated ferritin acute September 2:26pm [facility] [employer] [facility] Work Phone: Evaluation note Note Date & Type Note Facility Evaluation note No assessment information availa ble [facility] Work Phone: Reason for referral (narrative) Note Date & Type Note Facility Reason for referral (narrative) No reason for referral information available [facility] Work Phone: Chief Complaint and Reason for Visit Chief Complaint Admit Date XRAY July 07, 2024 11: 07am Chief Complaint Admit Date XRAY July 07, 2024 11: 07am ABNORMAL FINDING OF BLOOD CHEMISTRY Apri l 2024 7:52am SCAPULAR PAIN. RX HERE August 18, 2024 9: 30am LIVER DISEASE FATTY LIVER August 18, 2024 1:22pm Chief Complaint Admit Date XRAY July 07, 2024 11: 07am ABNORMAL FINDING OF BLOOD CHEMISTRY Apri l 2024 7:52am LIVER DISEASE FATTY LIVER August 18, 2024 1:22pm SCAPULAR PAIN. RX HERE August 31, 2024 3: 00pm IRON METABOLISM September 02, 2024 10:0 3am Reason for Visit Admit Date Fibrosis of liver August 18, 2024 1:22p m Iron overload August 18, 2024 1:22p m Chief Complaint Admit Date XRAY July 07, 2024 11: 07am ABNORMAL FINDING OF BLOOD CHEMISTRY Apri l 2024 7:52am LIVER DISEASE FATTY LIVER August 18, 2024 1:22pm IRON METABOLISM September 02, 2024 10:0 3am SCAPULAR PAIN. RX HERE September 11, 2024 9 :00am REVIEW LABS September 16, 2024 9:05 am Reason for Visit Admit Date Fibrosis of liver August 18, 2024 1:22p m Iron overload August 18, 2024 1:22p m Elevated ferritin September 02, 2024 10:0 3am Chief Complaint Admit Date XRAY July 07, 2024 11: 07am ABNORMAL FINDING OF BLOOD CHEMISTRY Apri l 2024 7:52am LIVER DISEASE FATTY LIVER August 18, 2024 1:22pm IRON METABOLISM September 02, 2024 10:0 3am SCAPULAR PAIN. RX HERE September 11, 2024 9 :00am REVIEW LABS September 16, 2024 9:05 am REVIEW LABS September 22, 2024 2:26p m Reason for Visit Admit Date Fibrosis of liver August 18, 2024 1:22p m Iron overload August 18, 2024 1:22p m Elevated ferritin September 02, 2024 10:0 3am Elevated ferritin September 22, 2024 2:26p m Summary Purpose Family History No Family History Records Found Advance Directives No Advanced Directives Records Found Additional Source Comments Care Teams (unrecognized sec tion and content) Team Status: Active Member Role Status Dates Dr. Ermelinda Farias MD Primary Care Provider Active Team Status: Inactive Member Role Status Dates Dr. Ovidio Andrade MD Attending Provider Active S tart: July 07, 2024 End: July 07, 2024 Team Status: Inactive Member Role Status Dates Dr. Ermelinda Farias MD Primary Care Provider Active Start: July 07, 2024 End: July 07, 2024 Dr. Ermelinda Farias MD Attending Provider Active Start: July 07, 2024 End: July 07, 2024 Dr. Ermelinda Farias MD Referring Provider Active Start: July 07, 2024 End: July 07, 2024 Team Status: Inactive Member Role Status Dates Dr. Ermelinda Farias MD Primary Care Provider Active Start: July 21, 2024 End: July 21, 2024 Dr. Ermelinda Farias MD Attending Provider Active Start: July 21, 2024 End: July 21, 2024 Dr. Ermelinda Farias MD Referring Provider Active Start: July 21, 2024 End: July 21, 2024 Team Status: Active Member Role Status Dates Dr. Ermelinda Farias MD Primary Care Provider Active Start: August 18, 2024 Dr. Ermelinda Farias MD Attending Provider Active Start: August 18, 2024 Dr. Ermelinda Farias MD Referring Provider Active Start: August 18, 2024 Team Status: Inactive Member Role Status Dates Dr. Ermelinda Farias MD Primary Care Provider Active Start: August 18, 2024 End: August 18, 2024 Dr. Ermelinda Fraias MD Referring Provider Active Start: August 18, 2024 End: August 18, 2024 Dr. Sunday Valdez MD Attending Provider Active Start: August 18, 2024 End: August 18, 2024 Team Status: Active Member Role Status Dates Dr. Ermelinda Farias MD Primary Care Provider Active Start: August 31, 2024 Dr. Ermelinda Farias MD Attending Provider Active Start: August 31, 2024 Dr. Ermelinda Farias MD Referring Provider Active Start: August 31, 2024 Team Status: Inactive Member Role Status Dates Dr. Ermelinda Farias MD Primary Care Provider Active Start: September 02, 2024 End: September 02, 2024 Dr. Brandy Rahman MD Attending Provider Active Start: September 02, 2024 End: September 02, 2024 Dr. Sunday Valdez MD Referring Provider Active Start: September 02, 2024 End: September 02, 2024 Team Status: Inactive Member Role Status Dates Dr. Ermelinda Farias MD Primary Care Provider Active Start: September 11, 2024 End: September 11, 2024 Dr. Ermelinda Farias MD Attending Provider Active Start: September 11, 2024 End: September 11, 2024 Dr. Ermelinda Farias MD Referring Provider Active Start: September 11, 2024 End: September 11, 2024 Team Status: Active Member Role Status Dates Dr. Ermelinda Farias MD Primary Care Provider Active Start: September 16, 2024 Dr. Brandy Rahman MD Attending Provider Active Start: September 16, 2024 Dr. Brandy Rahman MD Referring Provider Active Start: September 16, 2024 Team Status: Active Member Role/Relationship Status Dates Dr. Ermelinda Farias MD Primary Care Provider Active Team Status: Inactive Member Role/Relationship Status Dates Dr. Ovidio Andrade MD Attending Provider Active S tart: July 07, 2024 End: July 07, 2024 Team Status: Inactive Member Role/Relationship Status Dates Dr. Ermelinda Farias MD Primary Care Provider Active Start: July 07, 2024 End: July 07, 2024 Dr. Ermelinda Farias MD Attending Provider Active Start: July 07, 2024 End: July 07, 2024 Dr. Ermelinda Farias MD Referring Provider Active Start: July 07, 2024 End: July 07, 2024 Team Status: Inactive Member Role/Relationship Status Dates Dr. Ermelinda Farias MD Primary Care Provider Active Start: July 21, 2024 End: July 21, 2024 Dr. Ermelinda Farias MD Attending Provider Active Start: July 21, 2024 End: July 21, 2024 Dr. Ermelinda Farias MD Referring Provider Active Start: July 21, 2024 End: July 21, 2024 Team Status: Inactive Member Role/Relationship Status Dates Dr. Ermelinda Farias MD Primary Care Provider Active Start: August 18, 2024 End: August 18, 2024 Dr. Ermelinda Farias MD Referring Provider Active Start: August 18, 2024 End: August 18, 2024 Dr. Sunday Valdez MD Attending Provider Active Start: August 18, 2024 End: August 18, 2024 Team Status: Inactive Member Role/Relationship Status Dates Dr. Ermelinda Farias MD Primary Care Provider Active Start: September 02, 2024 End: September 02, 2024 Dr. Brandy Rahman MD Attending Provider Active Start: September 02, 2024 End: September 02, 2024 Dr. Sunday Valdez MD Referring Provider Active Start: September 02, 2024 End: September 02, 2024 Team Status: Inactive Member Role/Relationship Status Dates Dr. Ermelinda Farias MD Primary Care Provider Active Start: September 11, 2024 End: September 11, 2024 Dr. Ermelinda Farias MD Attending Provider Active Start: September 11, 2024 End: September 11, 2024 Dr. Ermelinda Farias MD Referring Provider Active Start: September 11, 2024 End: September 11, 2024 Team Status: Active Member Role/Relationship Status Dates Dr. Ermelinda Farias MD Primary Care Provider Active Start: September 16, 2024 Dr. Brandy Rahman MD Attending Provider Active Start: September 16, 2024 Dr. Brandy Rahman MD Referring Provider Active Start: September 16, 2024 Team Status: Inactive Member Role/Relationship Status Dates Dr. Ermelinda Farias MD Primary Care Provider Active Start: September 22, 2024 End: September 22, 2024 Dr. Ermelinda Farias MD Referring Provider Active Start: September 22, 2024 End: September 22, 2024 Dr. Brandy Rahman MD Attending Provider Active Start: September 22, 2024 End: September 22, 2024 Goals (unrecognized section and content) Goals may be documented in a n alternate sectionGoals may be documented in an alternate sectionGoals may be documented in an alternate sectionGoals may be documented in an alternate sectionGoals may be documented in an alternate section (unrecognized sect ion and content) No Status Records Found INFORMATION SOURCE (unrecogn ized section and content) DATE CREATED AUTHOR 10/20/2024 [facility] FOR RECORDS PERTAINING TO PATIENTS WHO ARE OR HAVE BEEN ENROLLED IN A CHEMICAL DEPENDENCY/SUBSTANCEABUSE PROGRAM, SOME INFORMATION MAY BE OMITTED. This clinical summary was aggregated from multiple sources. Caution should be exercised in using it in the provision of clinical care. This summary normalizes information from multiple sources, and as a consequence, information in this document may materially change the coding, format and clinical context of patient data. In addition, data may be omitted in some cases. CLINICAL DECISIONS SHOULD BE BASED ON THE PRIMARY CLINICAL RECORDS. [employer] provides no warranty or guarantee of the accuracy or completeness of information in this document.
--- OUTSIDE RECORDS SUMMARY | 2024-10-28 12:33 | XMS RPT_ITS | CCD ---
Author Organization [facility] CliniSynj Care Team Providers Care Ext Js Developer Name Role Phone Raymond AUGUSTE, Dr. Nolan Attending Provider [phone] Ying AUGUSTE, Dr. Wadsworth Primary Care Provider [...] Facility Oncology Visit Reporton Oncology Visit Report [facility] [address] [place] [address] OFFICE VISIT Date of Service: 09/22/24 1431 MR#: [id number] Acct: [id number] Name: KEVIN RON Rep #: [id number] : 1995 From: Brandy Rahman MD Age/Sex: 28/M Location: [facility] Status: Signed HPI Subjective Date of Service [...] acute abdominal pain. His CBC is normal. [facility] Medical History Anxiety NAFLD (nonalcoholic fatty [...] as above outlined discussed. Brandy Rahman MD Furnace Repairer, [facility] Divisions of Medical Oncology Hematology Department of Internal Medicine [place] [address] This note was generated using a voice [...] Signature: Date (more content not included)... Normal [facility] Iron measurement (mass/mass) Ordered By: Brandy Rahman on 09-16-2024 Iron (Unsp spec) [Mass/Mass] 150 ug/dL 65-175 [facility] Iron+Iron Binding Capacityon 09-16-2024 Iron [Mass/Vol] 150 ug/dL Normal 65-175 [facility] Comment on above: Performed By: #### L 503.6030, L503.6550 #### [facility] Laboratory [address] [facility]. [place] [id number] IRON SATURATION 41.0 Normal 9-55 [facility] Comment on above: Performed By: #### L 503.6030, L503.6550 #### [facility] Laboratory [address] [facility]. [facility] [place] [address] TIBC 365 ug/dL Normal 250-450 [facility] Comment on above: Performed By: #### L 503.6030, L503.6550 #### [facility] Laboratory [address] [facility] [place], [address] UIBC 215 ug/dL Low 228-428 [facility] Comment on above: Performed By: #### L 503.6030, L503.6550 #### [facility] Laboratory [address] [facility]. [place], [place], [address] No Panel InformationOrdered By: Brandy Rodriguezriaz on 09-16-2024 Unsaturated Iron Binding Capacity 215 ug/dL Low 228-428 [facility] Serum or plasma ferritin nevaeh surement (mass/volume)Ordered By: Brandy Rahman on 09-16-2024 Ferritin [Mass/Vol] 946 ng/mL High 37-417 [facility] Comment on above: Performed By: #### L 503.6030, L503.6550 #### [facility] Laboratory [address] [place], [place], [address] Serum or plasma iron saturat ion measurement (mass fraction)Ordered By: Brandy Rahman on 09-16-2024 Iron saturation [Mass fraction] 41.0 % 9-55 [facility] PT D/C Summary (1)on 025 PT D/C Summary (1) [facility] Physical Therapy [place] [address] 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 Thank you for the referral of this patient. Sincerely, Jeanna Burgos, PT, Cert MDT Balance/Gait/Functiona l tests Balance/Special Test Scores Quick DASH Score: 18.1800 Improvement % Improvement: 80 09/11/24 1211 CC: Dr. Ermelinda Farias MD RENATA Signed Normal [facility] Oncology Visit Reporton 08-23 Oncology Visit Report [facility] [address] [address] OFFICE VISIT Date of Service: 09/02/24 1013 MR#: [id number] Acct: [id number] Name: KEVIN RON Rep #: [id number] : 1995 From: Brandy Rahman MD Age/Sex: 28/M Location: [facility] Status: Signed HPI Subjective Date of Service [...] acute abdominal pain. His CBC is normal. [facility] Medical History (Updated 09/02/24 @ 10:44 [...] patient h (more content not included)... Normal [facility] Re-Evaluation - PT (1)on Re-Evaluation - PT (1) [facility] Physical Therapy [facility] [address] [place] [address]. [address] [place] [address] / REEVALUATION / MEDICARE RECERTIFICATION PHYSICAL THERAPY MR#: [id number] Acct: [id number] Name: KEVIN RON Rep #: [id number] : 1995 28 From: Jeanna Burgos PT, Cert. MDT Referring Dr.: Dr. Ermelinda Farias MD Status:REG R Insurance: [facility] [employer]ANCE Re-Evaluation Intro: Dr. Ermelinda [...] ON SX'S. Postural strength: FAIR. Palpation: TENDERNESS [id number] REGION TODAY. DENIES OTHER THORACIC, CERVICAL, LUMBAR [...] do not hesitate to contact me at [phone] by phone or if you have questions or concerns regarding this new plan of care! Sincerely, Jeanna Burgos, PT, Cert MDT 08/27/24 5442 CC: Dr. Ermelinda Farias MD RENATA Signed For Medicare only, by signing this I certify the plan of care. Physicians Signature Date Normal [facility] Gastroenterology Visit Repor ton 08-18-2024 Gastroenterology Visit Report [facility] Gastroenterology [address] [place] [address] OFFICE VISIT Date of Service: 08/18/24 MR#: [id number] Acct: [id number] Name: KEVIN RON Rep #: [id number] : 1995 Provider: Dr. Snuday bhakta MD Age/Sex: 28/M Location: [facility] Status: Signed Intake Vital Signs 08/18/24 13:30 [...] mg PO BID 08/13/24 08/18/24 Hi story [facility] Medical History Anxiety NAFLD (nonalcoholic fatty [...] 20 pounds in last [address] [facility] Head: normocephalic and atraumatic Nose: external nose [...] Affect: luis (more content not included)... Normal [facility] Inital Evaluation (1) - PTon 08-04-2024 Inital Evaluation (1) - PT [facility] Physical Therapy [facility] [address] [place] [address] [address] [place] [id number] / REHABILITATION SERVICES INITIAL EVALUATION MR#: [id number] Acct: [id number] Name: KEVIN RON Rep #: [id number] : 1995 28 From: Jeanna Burgos PT, [...] STABILIZER STRENGTHENING 3. POSTURAL STRENGTHENING 4. HEALTH BACK/RESTAURANT SUPERVISOR TRAINING FOR LIFTING AT WORK AND ERGONOMICS FOR HOME WORKSTATION SET UP 5. HEP 6. 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 JOB INVOLVES HEAVY BENDING, LIFTING AND TWISITNG UP TO 30 TO 40 LBS REPETIVELEY. OTHER: [facility] Disability: NO Present symptoms: L CHEST [...] To increase (more content not included)... Normal [facility] ABD Limited w/ Elastographyo n 07-21-2024 ABD Limited w/ Elastography [facility] Imaging Services [address] [place] [address] ABD Limited w/ Elastography MR#: [id number] Acct: [id number] Name: KEVIN RON Rep #: [id number] : 1995 M 28 From: Nicko Amor MD PCP: Dr. Ermelinda Farias MD Status: REG CLI Study: ABD Limited w/ Elastography Date of Exam: 06/24 12/17 Exam# [id number] Ordering Dr: Ermelinda Farias MD PROCEDURE: ABD LIMITED W/ ELASTOGRAPHY, 07/21/2024 REASON FOR EXAM: OTHER SPECIFIED ABNORMAL FINDINGS OF BLOOD CHEMISTRY COMPARISON: None TECHNIQUE: Grayscale and color Doppler imaging of the right upper quadrant was performed. Elastography was performed for non-invasive assessment of liver tissue stiffness utilizing a Cuculus S-shear wave imaging unit. FINDINGS: Liver: Markedly [...] (15kPa): Significant fibrosis / cirrhosis Reading Location: [id number] CC: Dr. Ermelinda Farias MD Psych Social Worker: Signed Normal [facility] Absolute lymphocyte countOrd ered By: Ermelinda Farias on 07-07-2024 Lymphocytes Auto (Unsp spec) [#/Vol] 2.80 10*3/uL 0.83-4.51 [facility] Absolute neutrophil countOrd ered By: Ermelinda Farias on 07-07-2024 Neutrophils (Bld) [#/Vol] 4.1 10*3/uL 2.0-7.7 [facility] Anion gap in Serum or Plasma Ordered By: Ermelinda Farias on 07-07-2024 Anion gap [Moles/Vol] 13 mmol/L 5- [facility] Automated lymphocyte count a s percentage of total leukocytesOrdered By: Ermelinda Farias on 07-07-2024 Lymphocytes/100 WBC Auto (Unsp spec) 35.5 % 19-41 [facility] BUN/creatinine ratioOrdered By: Ermelinda Farias on 07-07-2024 Urea nitrogen/Creatinine [Mass ratio] 7.0 mg/mg Low 10-20 [facility] Basophil percentageOrdered B y: Ermelinda Farias on 07-07-2024 Basophils/100 WBC (Bld) 1.0 % 0-1 [facility] Bilirubin, totalOrdered By: Ermelinda Farias on 07-07-2024 Bilirubin [Mass/Vol] 0.55 mg/dL Normal 0.00-1.30 [facility] Comment on above: Performed By: #### L 501.4021, L500.4050, L3000.0375, L503.6550, L100.0100, L300.8000, L501.9520, L506.0400, L501.5200 ####[facility] [address] [place], [address] CBC W/Diff, Automatedon 06-23-2024 Absolute Lymph 2.80 X10 3/uL Normal 0.83-4.51 [facility] Comment on above: Performed By: #### L 501.4021, L500.4050, L3000.0375, L503.6550, L100.0100, L300.8000, L501.9520, L506.0400, L501.5200 #### [facility] Laboratory [address] [place], [address] Absolute Neut 4.1 X10 3/uL Normal 2.0-7.7 [facility] Comment on above: Performed By: #### L 501.4021, L500.4050, L3000.0375, L503.6550, L100.0100, L300.8000, L501.9520, L506.0400, L501.5200 #### [facility] Laboratory [address] [place], [address] Basophils/100 WBC (Bld) 1.0 % Normal 0-1 [facility] Comment on above: Performed By: #### L 501.4021, L500.4050, L3000.0375, L503.6550, L100.0100, L300.8000, L501.9520, L506.0400, L501.5200 #### [facility] Laboratory [address] [place], [address] Eosinophils/100 WBC (Bld) 1.6 % Normal 0-5 [facility] Comment on above: Performed By: #### L 501.4021, L500.4050, L3000.0375, L503.6550, L100.0100, L300.8000, L501.9520, L506.0400, L501.5200 #### [facility] Laboratory [address] [facility] [place], [address] Erythrocyte distribution width (RBC) [Ratio] 12.8 % Normal 11.6-14.6 [facility] Comment on above: Performed By: #### L 501.4021, L500.4050, L3000.0375, L503.6550, L100.0100, L300.8000, L501.9520, L506.0400, L501.5200 #### [facility] Laboratory [address] [place], [address] Hematocrit (Bld) [Volume fraction] 46.1 % Normal 40-54 [facility] Comment on above: Performed By: #### L 501.4021, L500.4050, L3000.0375, L503.6550, L100.0100, L300.8000, L501.9520, L506.0400, L501.5200 #### [facility] Laboratory [address] [facility] [place], [address] Hemoglobin (Bld) [Mass/Vol] 15.9 g/dL Normal 13.0-16.5 [facility] Comment on above: Performed By: #### L 501.4021, L500.4050, L3000.0375, L503.6550, L100.0100, L300.8000, L501.9520, L506.0400, L501.5200 #### [facility] Laboratory [address] [facility] [place], [address] IG% 0.600 Normal 0.0-0.9 [facility] Comment on above: Result Comment: IG% - Immature Granulocytes (promyelocytes, myelocytes and metamyelocytes) > 1% indicates that a LEFT SHIFT is Present. Performed By: #### L 501.4021, L500.4050, L3000.0375, L503.6550, L100.0100, L300.8000, L501.9520, L506.0400, L501.5200 #### [facility] Laboratory [address] [place], [address] Lymphocytes/100 WBC (Bld) 35.5 % Normal 19-41 [facility] Comment on above: Performed By: #### L 501.4021, L500.4050, L3000.0375, L503.6550, L100.0100, L300.8000, L501.9520, L506.0400, L501.5200 #### [facility] Laboratory [address] [place], [address] MCH (RBC) [Entitic mass] 30.8 pg Normal 27.0-32.0 [facility] Comment on above: Performed By: #### L 501.4021, L500.4050, L3000.0375, L503.6550, L100.0100, L300.8000, L501.9520, L506.0400, L501.5200 #### [facility] Laboratory [address] [place], [address] MCHC (RBC) [Mass/Vol] 34.5 g/dL Normal 32-36 [facility] Comment on above: Performed By: #### L 501.4021, L500.4050, L3000.0375, L503.6550, L100.0100, L300.8000, L501.9520, L506.0400, L501.5200 #### [facility] Laboratory [address] [place], [address] MCV (RBC) [Entitic vol] 89.3 fL Normal 80-94 [facility] Comment on above: Performed By: #### L 501.4021, L500.4050, L3000.0375, L503.6550, L100.0100, L300.8000, L501.9520, L506.0400, L501.5200 #### [facility] Laboratory [address] [place], [address] Monocytes/100 WBC (Bld) 9.5 % Normal 0-10 [facility] Comment on above: Performed By: #### L 501.4021, L500.4050, L3000.0375, L503.6550, L100.0100, L300.8000, L501.9520, L506.0400, L501.5200 #### [facility] Laboratory [address] [place], [address] Neutrophils/100 WBC (Bld) 51.8 % Normal 47-70 [facility] Comment on above: Performed By: #### L 501.4021, L500.4050, L3000.0375, L503.6550, L100.0100, L300.8000, L501.9520, L506.0400, L501.5200 #### [facility] Laboratory [address] [place], [address] Nucleated RBC (Bld) [#/Vol] 0 10*3/uL Normal 0-5 [facility] Comment on above: Performed By: #### L 501.4021, L500.4050, L3000.0375, L503.6550, L100.0100, L300.8000, L501.9520, L506.0400, L501.5200 #### [facility] Laboratory [address] [place], [address] Platelet mean volume (Bld) [Entitic vol] 11.3 fL Normal 6.2-12.0 [facility] Comment on above: Performed By: #### L 501.4021, L500.4050, L3000.0375, L503.6550, L100.0100, L300.8000, L501.9520, L506.0400, L501.5200 #### [facility] Laboratory [address] [place], [address] Platelets (Bld) [#/Vol] 190 10*3/uL Normal 150-450 [facility] Comment on above: Performed By: #### L 501.4021, L500.4050, L3000.0375, L503.6550, L100.0100, L300.8000, L501.9520, L506.0400, L501.5200 #### [facility] Laboratory [address] [place], [address] RBC (Bld) [#/Vol] 5.16 10*6/uL Normal 4.6-6.2 [facility] Comment on above: Performed By: #### L 501.4021, L500.4050, L3000.0375, L503.6550, L100.0100, L300.8000, L501.9520, L506.0400, L501.5200 #### [facility] Laboratory [address] [place], [address] RDW SD 41.6 fl Normal 35.1-43.9 [facility] Comment on above: Performed By: #### L 501.4021, L500.4050, L3000.0375, L503.6550, L100.0100, L300.8000, L501.9520, L506.0400, L501.5200 #### [facility] Laboratory [address] [place], [address] WBC (Bld) [#/Vol] 7.9 10*3/uL Normal 4.4-11.[address] [facility] Comment on above: Performed By: #### L 501.4021, L500.4050, L3000.0375, L503.6550, L100.0100, L300.8000, L501.9520, L506.0400, L501.5200 #### [facility] Laboratory [address] [place], [address] Carbon dioxide, total [Moles /volume] in Central venous bloodOrdered By: Ermelinda Farias on 07-07-2024 CO2 [Moles/Vol] 22.1 mmol/L Normal 21.0-32.0 [facility] Comment on above: Performed By: #### L 501.4021, L500.4050, L3000.0375, L503.6550, L100.0100, L300.8000, L501.9520, L506.0400, L501.5200 ####[facility] [address] [facility] [place], [place], [id number] Chest PA and Lateralon 07-07 Chest PA and Lateral [facility] Imaging Services [address] [place], [place] [address] Chest PA and Lateral MR#: [id number] Acct: [id number] Name: KEVIN RON Rep #: [id number] : 1995 M 28 From: Adrián doty MD PCP: Status: DEP AMB Study: Chest PA and Lateral Date of Exam: 07/07/24 Exam# [id number] Ordering Dr: Ermelinda Fraias MD PROCEDURE: CHEST PA AND LATERAL 07/07/2024 REASON FOR EXAM: CHEST PAIN UPPER LEFT SIDE,EXERTIONAL TECHNIQUE: Frontal and lateral views of the chest. COMPARISON: None FINDINGS: Hardware: None Heart: The heart size is normal. Mediastinum: The mediastinal contour is unremarkable. Lungs: The lungs are clear. Bones: The bones are unremarkable. RAD/Chest PA and Lateral IMPRESSION: NEGATIVE CHEST Reading Location: [place] [address] CC: Dr. Ermelinda Farias MD Psych Social Worker: Signed Normal [facility] Chloride assayOrdered By: Vineet Farias on 07-07-2024 Chloride [Moles/Vol] 103 mmol/L Normal 98-108 [facility] Comment on above: Performed By: #### L 501.4021, L500.4050, L3000.0375, L503.6550, L100.0100, L300.8000, L501.9520, L506.0400, L501.5200 ####[facility] [address] [place], [address] Comprehensive Metabolic Prof ilon 07-07-2024 ALK PHOS 64 U/L Normal 40-129 [facility] Comment on above: Performed By: #### L 501.4021, L500.4050, L3000.0375, L503.6550, L100.0100, L300.8000, L501.9520, L506.0400, L501.5200 ####[facility] [address] [place], [address] BUN/CRE 7.0 RATIO Low 10-20 [facility] Comment on above: Performed By: #### L 501.4021, L500.4050, L3000.0375, L503.6550, L100.0100, L300.8000, L501.9520, L506.0400, L501.5200 ####[facility] [address] [place], [address] GAP 13 Normal 5-15 [facility] Comment on above: Performed By: #### L 501.4021, L500.4050, L3000.0375, L503.6550, L100.0100, L300.8000, L501.9520, L506.0400, L501.5200 ####[facility] [address] [place], [address] T PROT 7.9 g/dL Normal 5.9-8.4 [facility] Comment on above: Performed By: #### L 501.4021, L500.4050, L3000.0375, L503.6550, L100.0100, L300.8000, L501.9520, L506.0400, L501.5200 ####[facility] [address] [place], [place], [address] Comprehensive Metabolic Prof ilOrdered By: Ermelinda Farias on 07-07-2024 AST [Catalytic activity/Vol] 248 U/L High <=37 [facility] Comment on above: Performed By: #### L 501.4021, L500.4050, L3000.0375, L503.6550, L100.0100, L300.8000, L501.9520, L506.0400, L501.5200 ####[facility] [address] [place], [place], [address] D-Dimer Quantitative (DVT/PE )on 07-07-2024 D-DIMER QUANT 0.27 FEU/ug/m Normal 0.27-0.49 [facility] Comment on above: Result Comment: NORM AL D-Dimer level (<0.50) indicates no DVT or PE. Performed By: #### L 501.4021, L500.4050, L3000.0375, L503.6550, L100.0100, L300.8000, L501.9520, L506.0400, L501.5200 #### [facility] Laboratory [address] [place], [address] D-dimer measurement for deep venous thrombosisOrdered By: Ermelinda Farias on 07-07-2024 D-Dimer Quantitative (PE/DVT) 0.27 FEU/ug/m 0.27-0.49 [facility] Comment on above: NORMAL D-Dimer level (<0.50) indicates no DVT or PE. Eosinophil percentageOrdered By: Ermelinda Farias on 07-07-2024 Eosinophils/100 WBC (Bld) 1.6 % 0-5 [facility] Erythrocyte distribution wid th (RBC) [Ratio]Ordered By: Ermelinda Farias on 07-07-2024 Erythrocyte distribution width (RBC) [Entitic vol] 41.6 fL 35.1-43.9 [facility] Erythrocyte distribution wid th ratioOrdered By: Ermelinda Farias on 07-07-2024 Erythrocyte distribution width (RBC) [Ratio] 12.8 % 11.6-14.6 [facility] Erythrocyte distribution wid th standard deviationOrdered By: Ermelinda Farias on 07-07-2024 Erythrocyte distribution width (RBC) [Ratio] 41.6 fl 35.1-43.9 [facility] Ferritinon 07-07-2024 Ferritin [Mass/Vol] 1165 ng/mL High 37-417 [facility] Comment on above: Performed By: #### L 501.4021, L500.4050, L3000.0375, L503.6550, L100.0100, L300.8000, L501.9520, L506.0400, L501.5200 ####[facility] [address] [place], [address] GFR/1.73 sq M.predicted ibeth g non-blacks MDRD (S/P/Bld) [Vol rate/Area]Ordered By: Ermelinda Farias on 07-07-2024 Estimated GFR (MDRD) Non-Af Amer 123 >60 [facility] Comment on above: mL/min/1.73m2 CKD-EP I Creatinine Equation (2020) Glomerular filtration rate ( GFR) estimation/1.73 sq m using serum, plasma, or whole bOrdered By: Ermelinda Farias on 07-07-2024 GFR/1.73 sq M.predicted among non-blacks MDRD (S/P/Bld) [Vol rate/Area] 123 mL/min/{1.73_m2} Normal >60 [facility] Comment on above: mL/min/1.73m2 CKD-EP I Creatinine Equation (2020) Result Comment: mL/m in/1.73m2 CKD-EPI Creatinine Equation (2020) Performed By: #### L 501.4021, L500.4050, L3000.0375, L503.6550, L100.0100, L300.8000, L501.9520, L506.0400, L501.5200 ####[facility] [address] [place], [address] Hematocrit Auto (Bld) [Volum e fraction]Ordered By: Ermelinda Farias on 07-07-2024 Hematocrit (Bld) [Volume fraction] 46.1 % 40-54 [facility] Hemoglobin measurementOrdere d By: Ermelindadeondre Farias on 07-07-2024 Hemoglobin (Bld) [Mass/Vol] 15.9 g/dL 13.0-16.5 [facility] Hepatitis Panel Acuteon - HEP B CORE,IgM Normal [facility] Comment on above: Result Comment: NO T UBE Performed By: #### L 501.4021, L500.4050, L3000.0375, L503.6550, L100.0100, L300.8000, L501.9520, L506.0400, L501.5200 ####[facility] [address] [place], [place], [address] HEP B SURF AG Normal [facility] Comment on above: Result Comment: NO T UBE Performed By: #### L 501.4021, L500.4050, L3000.0375, L503.6550, L100.0100, L300.8000, L501.9520, L506.0400, L501.5200 ####[facility] [address] [place], [place], [address] HEP C VIRUS AB Normal [facility] Comment on above: Result Comment: NO T UBE Performed By: #### L 501.4021, L500.4050, L3000.0375, L503.6550, L100.0100, L300.8000, L501.9520, L506.0400, L501.5200 ####[facility] [address] [place], [place], [id number] HEPATITIS A-IgM Normal [facility] Comment on above: Result Comment: NO T UBE Performed By: #### L 501.4021, L500.4050, L3000.0375, L503.6550, L100.0100, L300.8000, L501.9520, L506.0400, L501.5200 ####[facility] [facility] [address] [place], [place], [id number] Immature granulocytes/100 WB C Auto (Bld)Ordered By: Ermelinda Farias on 07-07-2024 Immature granulocytes/100 WBC (Bld) 0.600 % 0.0-0.9 [facility] Comment on above: IG% - Immature Granu locytes (promyelocytes, myelocytes and metamyelocytes) > 1% indicates that a LEFT SHIFT is Present. L501.4021on 07-07-2024 Trop T High Sen < 6 Normal <=22 [facility] Comment on above: Performed By: #### L 501.4021, L500.4050, L3000.0375, L503.6550, L100.0100, L300.8000, L501.9520, L506.0400, L501.5200 ####[facility] [address] [place], [place], [id number] Lymphocytes Auto (Unsp spec) [#/Vol]Ordered By: Ermelinda Farias on 07-07-2024 Lymphocytes (Bld) [#/Vol] 2.80 10*3/uL 0.83-4.51 [facility] Lymphocytes/100 WBC Auto (Un sp spec)Ordered By: Ermelinda Farias on 07-07-2024 Lymphocytes/100 WBC (Bld) 35.5 % 19-41 [facility] MCV (mean corpuscular volume ) determinationOrdered By: Ermelinda Farias on 07-07-2024 MCV (RBC) [Entitic vol] 89.3 fL 80-94 [facility] Magnesium measurement (mass/ volume)Ordered By: Ermelinda Farias on 07-07-2024 Magnesium (Unsp spec) [Mass/Vol] 2.2 mg/dL 1.5-2.2 [facility] Magnesium [Mass/Vol] 2.2 mg/dL Normal 1.5-2.2 [facility] Comment on above: Performed By: #### L 501.4021, L500.4050, L3000.0375, L503.6550, L100.0100, L300.8000, L501.9520, L506.0400, L501.5200 ####[facility] [address] [place], [address] Mean corpuscular hemoglobin (MCH) determinationOrdered By: Ermelinda Farias on 07-07-2024 MCH (RBC) [Entitic mass] 30.8 pg 27.0-32.0 [facility] Mean corpuscular hemoglobin concentration (MCHC) determinationOrdered By: Ermelinda Farias on 07-07-2024 MCHC (RBC) [Mass/Vol] 34.5 g/dL 32-36 [facility] Mean platelet volume determi nationOrdered By: Ermelinda Farias on 07-07-2024 Platelet mean volume (Bld) [Entitic vol] 11.3 fL 6.2-12.0 [facility] Monocyte percentageOrdered B y: Ermelinda Farias on 07-07-2024 Monocytes/100 WBC (Bld) 9.5 % 0-10 [facility] Neutrophil percentageOrdered By: Ermelinda Farias on 07-07-2024 Neutrophils/100 WBC (Bld) 51.8 % 47-70 [facility] Nucleated red blood cell per centageOrdered By: Ermelinda Farias on 07-07-2024 Nucleated RBC/100 WBC (Bld) [Ratio] 0 % 0-5 [facility] Platelet countOrdered By: Vineet Farias on 07-07-2024 Platelets (Bld) [#/Vol] 190 10*3/uL 150-450 [facility] Potassium measurement (mass/ volume)Ordered By: Ermelinda Farias on 07-07-2024 Potassium (Unsp spec) [Mass/Vol] 3.9 mmol/L 3.3-5.1 [facility] Potassium [Moles/Vol] 3.9 mmol/L Normal 3.3-5.1 [facility] Comment on above: Performed By: #### L 501.4021, L500.4050, L3000.0375, L503.6550, L100.0100, L300.8000, L501.9520, L506.0400, L501.5200 ####[facility] [address] [place], [address] RBC Auto (Bld) [#/Vol]Ordere d By: Ermelinda Farias on 07-07-2024 RBC (Bld) [#/Vol] 5.16 10*6/uL 4.6-6.2 [facility] Ribs Unil 2V No CXRon 2024 Ribs Unil 2V No CXR [facility] [address] [place] [address] Ribs Unil 2V No CXR MR#: [id number] Acct: [id number] Name: KEVIN RON Rep #: [id number] : 1995 M 28 From: Adrián doty MD PCP: Status: DEP AMB Study: Ribs Unil 2V No CXR Date of Exam: 07/07/24 Exam# [id number] Ordering Dr: Ermelinda Farias MD EXAM: Left ribs. CLINICAL HISTORY: Upper left rib pain. No history of trauma. COMPARISON: None TECHNIQUE: Four views of the left ribs were obtained. FINDINGS: The ribs are unremarkable. No evidence of fracture. The lungs are clear. RAD/Ribs Unil 2V No CXR IMPRESSION: Normal examination. Reading Location: [place] [address] CC: Dr. Ermelinda Farias MD Psych Social Worker: Signed Normal [facility] Serum creatinine measurement (mass/volume)Ordered By: Ermelinda Farias on 07-07-2024 Creatinine [Mass/Vol] 0.83 mg/dL Normal 0.70-1.20 [facility] Comment on above: Performed By: #### L 501.4021, L500.4050, L3000.0375, L503.6550, L100.0100, L300.8000, L501.9520, L506.0400, L501.5200 ####[facility] [address] [facility] [place], [address] Serum globulin measurementOr dered By: Ermelinda Farias on 07-07-2024 Globulin (S) [Mass/Vol] 3.2 g/dL Normal 2.2-4.2 [facility] Comment on above: Performed By: #### L 501.4021, L500.4050, L3000.0375, L503.6550, L100.0100, L300.8000, L501.9520, L506.0400, L501.5200 ####[facility] [address] [place], [address] Serum glucose measurement (m ass/volume)Ordered By: Ermelinda Farias on 07-07-2024 Glucose [Mass/Vol] 91 mg/dL Normal 70-[address] [facility] Comment on above: Performed By: #### L 501.4021, L500.4050, L3000.0375, L503.6550, L100.0100, L300.8000, L501.9520, L506.0400, L501.5200 ####[facility] [address] [place], [address] Serum or plasma alanine lomax otransferase (ALT) measurementOrdered By: Ermelinda Farias on 07-07-2024 ALT [Catalytic activity/Vol] 660 U/L High <=46 [facility] Comment on above: Performed By: #### L 501.4021, L500.4050, L3000.0375, L503.6550, L100.0100, L300.8000, L501.9520, L506.0400, L501.5200 ####[facility] [address] [place], [place], [id number] Serum or plasma albumin manda urement (mass/volume)Ordered By: Ermelinda Farias on 07-07-2024 Albumin [Mass/Vol] 4.7 g/dL Normal 3.5-5.[address] [facility] Comment on above: Performed By: #### L 501.4021, L500.4050, L3000.0375, L503.6550, L100.0100, L300.8000, L501.9520, L506.0400, L501.5200 ####[facility] [address] [place], [place], [id number] Serum or plasma albumin/glob ulin mass ratioOrdered By: Ermelindadeondre Farias on 07-07-2024 Albumin/Globulin [Mass ratio] 1.5 {ratio} Normal 0.9-2.4 [facility] Comment on above: Performed By: #### L 501.4021, L500.4050, L3000.0375, L503.6550, L100.0100, L300.8000, L501.9520, L506.0400, L501.5200 ####[facility] [address] [place], [address] Serum or plasma alkaline john sphatase measurementOrdered By: Ermelinda Farias on 07-07-2024 ALP [Catalytic activity/Vol] 64 U/L 40-129 [facility] Serum or plasma calcium manda urement (mass/volume)Ordered By: Ermelinda Farias on 07-07-2024 Calcium [Mass/Vol] 9.2 mg/dL Normal 7.6-11.[address] [facility] Comment on above: Performed By: #### L 501.4021, L500.4050, L3000.0375, L503.6550, L100.0100, L300.8000, L501.9520, L506.0400, L501.5200 ####[facility] [address] [place], [address] Serum or plasma ferritin nevaeh surement (mass/volume)Ordered By: Ermelinda Farias on 07-07-2024 Ferritin [Mass/Vol] 1165 ng/mL High 37-417 [facility] Serum or plasma urea nitroge n measurement (mass/volume)Ordered By: Ermelinda Farias on 07-07-2024 Urea nitrogen [Mass/Vol] 6 mg/dL Normal 4-19 [facility] Comment on above: Performed By: #### L 501.4021, L500.4050, L3000.0375, L503.6550, L100.0100, L300.8000, L501.9520, L506.0400, L501.5200 ####[facility] [address] [place], [address] Sodium levelOrdered By: Ermelinda Farias on 07-07-2024 Sodium [Moles/Vol] 138 mmol/L Normal 133-[address] [facility] Comment on above: Performed By: #### L 501.4021, L500.4050, L3000.0375, L503.6550, L100.0100, L300.8000, L501.9520, L506.0400, L501.5200 ####[facility] [address] [place], [address] T4 Free Directon 07-07-2024 T4 FREE DIRECT 1.30 ng/dL Normal 0.76-1.46 [facility] Comment on above: Order Comment: N Performed By: #### L 501.4021, L500.4050, L3000.0375, L503.6550, L100.0100, L300.8000, L501.9520, L506.0400, L501.5200 ####[facility] [address] [place], [place], [id number] T4 freeOrdered By: Ermelinda trevino on 07-07-2024 Free T4 [Mass/Vol] 1.30 ng/dL 0.76-1.[address] [facility] TSH DL <= 0.005 mIU/L QnOrde red By: Ermelinda Farias on 07-07-2024 Thyroid Stimulating Hormone (TSH) 1.550 uIU/mL 0.300-4.200 [facility] TSH Qn 1.550 uIU/mL 0.300-4.200 [facility] Thyroid Stim Hormone (TSH)on 07-07-2024 TSH 1.550 uIU/mL Normal 0.300-4.200 [facility] Comment on above: Performed By: #### L 501.4021, L500.4050, L3000.0375, L503.6550, L100.0100, L300.8000, L501.9520, L506.0400, L501.5200 ####[facility] [address] [place], [place], [address] Total proteinOrdered By: Charlie Farias on 07-07-2024 Protein [Mass/Vol] 7.9 g/dL 5.9-8.[address] [facility] Troponin T.cardiac High sens itivity method [Mass/Vol]Ordered By: Ermelinda Farias on 07-07-2024 Troponin T High Sensitivity < 6 ng/L <22 [facility] Troponin T.cardiac [Mass/vol ume] in Serum or Plasma by High sensitivity methodOrdered By: Ermelinda Farias on 07-07-2024 Troponin T.cardiac High sensitivity method [Mass/Vol] < 6 ng/L <22 [facility] White blood cell (WBC) count Ordered By: Ermelinda Farias on 07-07-2024 WBC (Bld) [#/Vol] 7.9 10*3/uL 4.4-11.[address] [facility] Vital Signs Date Time Vital Sign Value Performing Clinician Ilia denton 09-22-2024 14:35-0400 Body height 182.[address] Ermelidna Farias MD Work Phone: [facility] 09-22-2024 14:35-0400 Body mass index (BMI) [Ratio] 29 kg/m2 Dr. Ermelinda Farias MD Work Phone: [facility] 09-22-2024 14:35-0400 Body temperature 98.4 [degF] Dr. Ermelinda Farias MD Work Phone: [facility] 09-22-2024 14:35-0400 Body weight 97.[address] Ermelinda Farias MD Work Phone: [facility] 09-22-2024 14:35-0400 Diastolic blood pressure 85 mm[Hg] Dr. Ermelinda Farias MD Work Phone: [facility] 09-22-2024 14:35-0400 Heart rate 99 /min Dr. Ermelinda Farias MD Work Phone: [facility] 09-22-2024 14:35-0400 Respiratory rate 16 /min Dr. Ermelinda Farias MD Work Phone: [facility] 09-22-2024 14:35-0400 SaO2% (BldA) [Mass fraction] 97 % Dr. Ermelinda Farias MD Work Phone: [facility] 09-22-2024 14:35-0400 Systolic blood pressure 130 mm[Hg] Dr. Ermelinda Farias MD Work Phone: [facility] 09-02-2024 10:23-0400 Body height 182.[address] Ermelinda Farias MD Work Phone: [facility] 09-02-2024 10:17-0400 Body mass index (BMI) [Ratio] 26.6 kg/m2 Dr. Ermelinda Farias MD Work Phone: [facility] 09-02-2024 10:17-0400 Body temperature 98.1 [degF] Dr. Ermelinda Farias MD Work Phone: [facility] 09-02-2024 10:17-0400 Body weight 96.[address] Ermelinda Farias MD Work Phone: [facility] 09-02-2024 10:17-0400 Diastolic blood pressure 93 mm[Hg] Dr. Ermelinda Farias MD Work Phone: [facility] 09-02-2024 10:17-0400 Heart rate 82 /min Dr. Ermelinda Farias MD Work Phone: [facility] 09-02-2024 10:17-0400 Respiratory rate 18 /min Dr. Ermelinda Farias MD Work Phone: [facility] 09-02-2024 10:17-0400 SaO2% (BldA) [Mass fraction] 97 % Dr. Ermelinda Farias MD Work Phone: [facility] 09-02-2024 10:17-0400 Systolic blood pressure 136 mm[Hg] Dr. Ermelinda Farias MD Work Phone: [facility] 08-18-2024 13:30-0400 Body height 182.[address] Ermelinda Farias MD Work Phone: [facility] 08-18-2024 13:30-0400 Body mass index (BMI) [Ratio] 28.6 kg/m2 Dr. Ermelinda Farias MD Work Phone: [facility] 08-18-2024 13:30-0400 Body weight 95.[address] Ermelinda Farias MD Work Phone: [facility] 08-18-2024 13:30-0400 Diastolic blood pressure 98 mm[Hg] Dr. Ermelinda Farias MD Work Phone: [facility] 08-18-2024 13:30-0400 Heart rate 78 /min Dr. Ermelinda Farias MD Work Phone: [facility] 08-18-2024 13:30-0400 SaO2% (BldA) [Mass fraction] 98 % Dr. Ermelinda Farias MD Work Phone: [facility] 08-18-2024 13:30-0400 Systolic blood pressure 142 mm[Hg] Dr. Ermelinda Farias MD Work Phone: [facility] Encounters Encounter Date Encounter Type Care Provider Facility Start: 10-28-2024 ambulatory Ermelinda Farias Facility:[facility] Start: 10-23-2024 ambulatory [facility] Facility: [facility] Start: 10-16-2024 Encounter for preprocedural laboratory examination [facility] Start: 09-22-2024 End: 09-22-[address] Brandy Rahman MD -[facility] Work Phone: Start: 09-22-2024 End: 09-22-[address] Ermelinda Farias MD Work Phone: -[facility] Start: 09-16-[address] Sandra Rahman MD -[facility] Start: 09-16-2024 ambulatory Brandy Larose ty:[facility] Start: 09-11-2024 End: 09-11-[address] Ermelinda Farias MD Work Phone: [facility] Work Phone: Start: 09-11-2024 End: 09-11-[address] Ermelinda Farias MD -Physical Therapy Work Phone: Start: 09-02-2024 End: 09-02-[address] Brandy Rahman MD -[facility] Work Phone: Start: 09-02-2024 End: 09-02-[address] Ermelinda Farias MD Work Phone: [facility] Work Phone: Start: 08-31-[address] Ermelinda Farias MD -Physical Therapy Work Phone: Start: 08-18-2024 End: 08-18-[address] Sunday Valdez MD -[facility] Work Phone: Start: 08-18-2024 End: 08-18-[address] Ermelinda Farias MD Work Phone: [facility] Work Phone: Start: 08-18-[address] Ermelinda Farias MD -Physical Therapy Work Phone: Start: 07-21-2024 End: 07-21-[address] Ermelinda Farias MD -Ultrasound [facility] Work Phone: Start: 07-21-2024 End: 07-21-2024 ambulatory Ermelinda Farias Facility:[facility] Start: 07-07-2024 End: 07-07-[address] Ermelinda Farias MD Work Phone: [facility] Work Phone: Start: 07-07-2024 End: 07-07-[address] Ermelinda Farias MD -Laboratory, Specimen Work Phone: Start: 07-07-2024 End: 07-07-[address] Ovidio Andrade MD -[facility] Start: 07-07-2024 End: 07-07-2024 ambulatory Ovidio Andrade Facility:[facility] Start: 07-07-2024 End: 07-07-2024 ambulatory Ermelinda Farias Facility:[facility] Procedures Date Procedure Procedure Detail Performing Clinician [...] Date Care Activity Detail Author Start: 09-16-2024 [facility] Start: 08-18-2024 Patient referral [facility] Work Phone: Egllw-0-mangvitxafb. tumor marker [Units/volume] in Serum or Plasma [facility] C reactive protein [ Mass/volume] in Serum or Plasma [facility] CBC W Auto Different ial panel - Blood [facility] Cobalamin (Vitamin B 12) [Mass/volume] in Serum or Plasma [facility] pital Comprehensive metabo lic 1999 panel - Serum or Plasma [facility] Cytoplasmic ANCA Screen [facility] Direct antiglobulin test.unspecified reagent [Presence] [facility] Red [facility] Ferrit[facility] [Mass/volum e] in Serum or Plasma [facility] Folate [Moles/volume ] in Serum or Plasma [facility] Haptoglobin [Mass/vo lume] in Serum or Plasma [facility] Hemoglobin A1c/Hemog lobin.total in Blood [facility] Hepatitis B virus bingham rface Ab [Presence] in Serum [facility] Immunoglobulin measurement [facility] Iron and Iron bindin g capacity panel - Serum or Plasma [facility] Lactate dehydrogenas e measurement [facility] Lipid 1995 panel - S giorgio or Plasma [facility] Mitochondria Ab [Pre sence] in Serum [facility] Patient referral [facility] [employer] Work Phone: Procedure [facility] Prothrombin time [facility] Smooth muscle Ab [Pr esence] in Serum [facility] Thyroid stimulating hormone measurement [facility] Transferrin [Mass/vo lume] in Serum or Plasma [facility] Payers Date Payer Category Payer Self-pay 2024 Unknown [id number] Unknown [id number] 2.16.8 [id number] Unknown [id number] 2.16.8 [id number] Unknown [id number] 2.16.8 [id number] Unknown [id number] 2.16.8 [id number] Unknown [id number] 2.16.8 [id number] Unknown [id number] 2.16.8 [id number] Unknown [id number] 2.16.8 [id number] Unknown [id number] 2.16.8 [id number] Unknown [id number] 2.16.8 [id number] Unknown [id number] 2.16.8 [id number] Social History Date Type Detail Facility Tobacco smoking stat [facility] Unknown if ever smoked [facility] Work Phone: Start: 07-09-2024 Sex Male (finding) [facility] Start: 1995 Sex Assigned At Male [facility] Start: 09-02-2024 Tobacco smoking stat [facility] Ex-smoker (finding) [facility] Discharge summary 09-11-2024 Note Date & Type Note Facility 09-11-2024 Discharge summary Note Date/Time September 11, 2024 12:11pm [facility] Physical Therapy [facility] [place] [address] / REHABILITATION SERVICES DISCHARGE SUMMARY MR#: [id number] Acct: [id number] Name: KEVIN RON Rep #: [id number] : 1995 28 From: Jeanna Burgos PT, Cert. MDT Referring Dr.: Dr. Ermelinda Farias MD Status: REG R Insurance: [facility]ANCE Discharge Summary D/C summary: It has been my pleasure to treat KEVIN RON referred by Dr. Ermelinda Farias MD,with the diagnosis of L SCAPULAR/COSTOCHONDRITIS for a total of 11 visit(s). Discharge Date: 09/11/24 Please see the following information for a summary of their discharge status. 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 Thank you for the referral of thispatient. Sincerely, Jeanna Burgos, PT, Cert MDT Balance/Gait/Functional tests Balance/Special Test Scores Quick DASH Score: 18.1800 Improvement % Improvement: 80 <Electronically signed by Jeanna Burgos PT Cert. MDT> 09/11/24 1211 CC: Dr. Ermelinda Farias MD ~ RENATA Signed [facility] Work Phone: Discharge summary 09-11-2024 Note Date & Type Note Facility 09-11-2024 Discharge summary [facility] Evaluation note 08-18-2024 Note Date & Type Note Facility 08-18-2024 Evaluation note Diagnosis Onset Date Resolution Fibrosis of liver chronic July 1:22pm Iron overload deleted August 18 025 1:22pm [facility] [employer] [facility] Work Phone: Evaluation note 08-18-2024 Note Date & Type Note Facility 08-18-2024 Evaluation note Diagnosis Onset Date Resolution Fibrosis of liver chronic July 1:22pm Iron overload deleted August 18, 2 025 1:22pm Elevated ferritin acute September 022024 10:03am [facility] Work Phone: Evaluation note 08-18-2024 Note Date & Type Note Facility 08-18-2024 Evaluation note Diagnosis Onset Date Resolution Fibrosis of liver chronic July 1:22pm Iron overload deleted August 18, 2 025 1:22pm Elevated ferritin acute September 022024 10:03am Elevated ferritin acute September 2:26pm [facility] [employer] [facility] Work Phone: Evaluation note Note Date & Type Note Facility Evaluation note No assessment information availa ble [facility] Work Phone: Reason for referral (narrative) Note Date & Type Note Facility Reason for referral (narrative) No reason for referral information available [facility] Work Phone: Chief Complaint and Reason for [...] section and content) DATE CREATED AUTHOR 10/20/2024 [facility] FOR RECORDS PERTAINING TO PATIENTS [...] BE BASED ON THE PRIMARY CLINICAL RECORDS. [employer] provides no warranty or guarantee of the accuracy or completeness of information in this document.
--- NOTE | 2024-10-28 18:33 | STRESSREP ---
Stress Test Report Exercise stress test. 28-year-old man with a history of chest pain Stress protocol: Resting EKG demonstrates normal sinus rhythm with a rate of 73 bpm resting blood pressure is 132/82 mmHg. The patient exercised according to the regular José Miguel protocol for a total duration of 9 minutes attaining a maximum heart rate of 179 bpm which was 92% of maximum predicted heart rate; the maximum workload was 10.1 metabolic equivalents. At rest there were no ST or T wave changes noted to suggest ischemia and at peak exercise upsloping ST changes only were noted which did not meet the criteria for ischemia. No clinical angina was noted the test was terminated due to the target heart rate being achieved/fatigue. Mild chest tightness noted. The peak blood pressure was 200/90 mmHg. Rate-pressure product was 35,800. Conclusion: Exercise stress test with no EKG criteria for ischemia at a high workload. No clinical angina noted.
== END | disposition home or self-care (01) ==
PROVIDERS: PCP Internal Medicine; Referring Provider Internal Medicine; Visit Provider Internal Medicine
DX: R07.9 Chest pain, unspecified (principal)
CPT/HCPCS: 93017

== ENCOUNTER → 2024-11-04 | Outpatient (CLI) | payer BC, SELFPAY ==
[2024-11-04 09:38] LABS: Hematocrit 47.0 % (40-54); Hemoglobin 16.0 g/dL (13.0-16.5); Immature Granulocytes Count 0.010 X10^3/uL (0.0-0.0); Mean Corp Hgb Conc 34.0 g/dL (32-36); Mean Corpuscular Volume 90.0 fL (80-94); Mean Platelet Vol. 11.2 fl (6.2-12.0); NRBC Flagged by Analyzer 0 % (0-5); Platelet Count 241 K/mm3 (150-450); RBC Distribution Width CV 12.3 % (11.6-14.6); RBC Distribution Width SD 40.7 fl (35.1-43.9); Red Blood Count 5.22 M/mm3 (4.6-6.2); White Blood Count 6.5 K/mm3 (4.4-11.0)
[2024-11-04 09:51] LABS: Prothrombin Time (Protime)PT. 13.3 SECONDS (11.7-14.9)
[2024-11-04 10:41] LABS: AST(SGOT) 114 U/L (<=37); Alanine Aminotransfer ALT/SGPT 398 U/L (<=46); Albumin, Serum 4.5 g/dL (3.5-5.0); Alkaline Phosphatase 62 U/L (40-129); Anion Gap 14 (5-15); BUN 7 mg/dL (4-19); BUN/Creat Ratio 7.8 RATIO (10-20); Calcium,Total 9.4 mg/dL (7.6-11.0); Carbon Dioxide 20.8 mmol/L (21.0-32.0); Chloride 105 mmol/L (98-108); Cholesterol 196 mg/dL (<=200); Ferritin 390 ng/mL (37-417); Globulin 3.1 g/dL (2.2-4.2); Glucose 103 mg/dL (70-99); Low Density Lipoprotein Calc. 113 mg/dL; Potassium 4.2 mmol/L (3.3-5.1); Triglycerides 118 mg/dL; Very Low Density Lipoprotein 24 mg/dL (5-40); Vitamin B12 688 pg/mL (180-914); cholesterol:hdl ratio screen 3.29
[2024-11-04 11:06] LABS: Iron Binding Capacity,Total 386 ug/dL (250-450)
[2024-11-04 11:12] LABS: CRP < 3.00 mg/L (0.0-3.0); Iron 164 ug/dL (65-175); Iron Binding Capacity,Unsat 222 ug/dL (228-428); LDH 191 U/L (87-241)
[2024-11-05 14:09] LABS: ANTINUCLEAR ANTIBODIES DIRECT Negative (Negative)
[2024-11-09 11:08] LABS: Anti-Smooth Muscle ABS 10 Units (0-19); Immunoglobulin A 231 mg/dL (90-386); Immunoglobulin G 1179 mg/dL (603-1613); Immunoglobulin M 164 mg/dL (20-172); Transferrin 309 mg/dL (177-329)
== END | disposition home or self-care (01) ==
PROVIDERS: PCP Internal Medicine; Referring Provider Internal Medicine; Visit Provider Internal Medicine
DX: E83.19 Other disorders of iron metabolism (principal); K74.00 Hepatic fibrosis, unspecified
CPT/HCPCS: 36415; 80053; 80061; 82105; 82607; 82728; 82784; 82785; 83010; 83036; 83516; 83540; 83550; 83615; 84443; 84466; 85025; 85610; 86038; 86140; 86225; 86706; 86880

== ENCOUNTER → 2025-01-07 | Outpatient (CLI) | payer BC, SELFPAY ==
--- NOTE | 2025-01-07 11:14 | US_ITS ---
PROCEDURE: OTHER UNLISTED US PROCEDURE 01/07/2025 REASON FOR EXAM: RULE OUT CYSTIC LESION TECHNIQUE: Procedure Code: USOTH SOFT Modality: US Procedure: OTHER UNLISTED US PROCEDURE. Palpable lump in the left upper chest. COMPARISON: None FINDINGS: Imaging of the left upper chest was performed. No sonographic abnormality is seen. US/Other Unlisted US Procedure IMPRESSION: No sonographic abnormality is seen. Reading Location: [facility]
--- NOTE | 2025-01-07 11:14 | US_ITS ---
PROCEDURE: OTHER UNLISTED US PROCEDURE 01/07/2025 REASON FOR EXAM: RULE OUT CYSTIC LESION TECHNIQUE: Procedure Code: USOTH SOFT Modality: US Procedure: OTHER UNLISTED US PROCEDURE. Palpable lump in the left upper chest. COMPARISON: None FINDINGS: Imaging of the left upper chest was performed. No sonographic abnormality is seen. US/Other Unlisted US Procedure IMPRESSION: No sonographic abnormality is seen. Reading Location: [facility]
== END | disposition home or self-care (01) ==
LOC: US 11:05
PROVIDERS: PCP Internal Medicine; Referring Provider Orthopaedic Surgery Sports Medicine; Visit Provider Orthopaedic Surgery Sports Medicine
DX: M25.512 Pain in left shoulder (principal)
CPT/HCPCS: 76999

== ENCOUNTER → 2025-02-25 | Outpatient (CLI) | payer BC, SELFPAY | END | disposition home or self-care (01) | LOC: SL 11:13 | PROVIDERS: PCP Internal Medicine; Referring Provider Internal Medicine; Visit Provider Internal Medicine | DX: R06.81 Apnea, not elsewhere classified (principal) | CPT/HCPCS: 95806 ==

== ENCOUNTER → 2025-03-01 | Outpatient (CLI) | payer BC, SELFPAY ==
[2025-03-01 10:56] LABS: AST(SGOT) 37 U/L (<=37); Alanine Aminotransfer ALT/SGPT 95 U/L (<=46); Albumin, Serum 4.5 g/dL (3.5-5.0); Alkaline Phosphatase 60 U/L (40-129); Anion Gap 12 (5-15); BUN 9 mg/dL (4-19); BUN/Creat Ratio 9.7 RATIO (10-20); Calcium,Total 9.4 mg/dL (7.6-11.0); Carbon Dioxide 23.6 mmol/L (21.0-32.0); Chloride 103 mmol/L (98-108); Globulin 3.0 g/dL (2.2-4.2); Glucose 117 mg/dL (70-99); Potassium 3.9 mmol/L (3.3-5.1)
== END | disposition home or self-care (01) ==
LOC: CIMLAB 09:04
PROVIDERS: PCP Internal Medicine; Referring Provider Internal Medicine; Visit Provider Internal Medicine
DX: K76.0 Fatty (change of) liver, not elsewhere classified (principal)
CPT/HCPCS: 36415; 80053

== ENCOUNTER → 2025-03-15 | Outpatient (CLI) | payer BC, SELFPAY | END | disposition home or self-care (01) | LOC: SL 08:07 | PROVIDERS: PCP Internal Medicine; Referring Provider Internal Medicine; Visit Provider Internal Medicine | DX: G47.33 Obstructive sleep apnea (adult) (pediatric) (principal) ==

== ENCOUNTER → 2025-03-23 | Outpatient (CLI) | payer BC, SELFPAY ==
[2025-03-23 10:31] LABS: Hematocrit 45.0 % (40-54); Hemoglobin 15.6 g/dL (13.0-16.5); Immature Granulocytes Count 0.010 X10^3/uL (0.0-0.0); Mean Corp Hgb Conc 34.7 g/dL (32-36); Mean Corpuscular Volume 86.5 fL (80-94); Mean Platelet Vol. 10.8 fl (6.2-12.0); NRBC Flagged by Analyzer 0 % (0-5); Platelet Count 192 K/mm3 (150-450); RBC Distribution Width CV 12.8 % (11.6-14.6); RBC Distribution Width SD 40.3 fl (35.1-43.9); Red Blood Count 5.20 M/mm3 (4.6-6.2); White Blood Count 6.7 K/mm3 (4.4-11.0)
[2025-03-23 10:40] LABS: Prothrombin Time (Protime)PT. 12.5 SECONDS (11.7-14.9)
[2025-03-23 11:04] LABS: AST(SGOT) 27 U/L (<=37); Alanine Aminotransfer ALT/SGPT 58 U/L (<=46); Albumin, Serum 4.5 g/dL (3.5-5.0); Alkaline Phosphatase 63 U/L (40-129); Anion Gap 14 (7-18); BUN 8 mg/dL (4-19); BUN/Creat Ratio 7.4 RATIO (10-20); Calcium,Total 9.0 mg/dL (7.6-11.0); Carbon Dioxide 20.4 mmol/L (20.0-29.0); Chloride 104 mmol/L (96-106); Globulin 3.1 g/dL (2.2-4.2); Glucose 111 mg/dL (70-99); Potassium 4.0 mmol/L (3.5-5.1)
[2025-03-24 04:07] LABS: GGTP 42 IU/L (0-65)
== END | disposition home or self-care (01) ==
LOC: CIMLAB 08:45
PROVIDERS: PCP Internal Medicine; Referring Provider Internal Medicine; Visit Provider Internal Medicine
DX: R79.89 Other specified abnormal findings of blood chemistry (principal); K74.00 Hepatic fibrosis, unspecified; R74.8 Abnormal levels of other serum enzymes
CPT/HCPCS: 80053; 82977; 85025; 85610